=== PATIENT | female | born 1975 | race Caucasian/White ===

== ENCOUNTER → 2017-08-26 | Outpatient (CLI) | payer OTHER ==
--- NOTE | 2017-09-01 09:23 | MM ---
Reason for exam: screening (asymptomatic). Last mammogram was performed 5 years and 2 months ago. Physical Findings: A clinical breast exam by your physician is recommended on an annual basis and results should be correlated with mammographic findings. MG Screening Mammo w CAD Bilateral CC and MLO view(s) were taken. Prior study comparison: June 21, 2012, mammogram, performed at [facility]. The breast tissue is heterogeneously dense. This may lower the sensitivity of mammography. Focal asymmetry in the upper central right breast posterior third position. This finding is changed when compared with previous exams. ASSESSMENT: Incomplete: need additional imaging evaluation, BI-RAD 0 RECOMMENDATION: Special view mammogram of the right breast. If lesion persists on supplemental views, image directed ultrasound is recommended. [facility] will attempt to contact patient to return for supplemental views and ultrasound if indicated.
== END | disposition home or self-care (01) ==
LOC: RADMAMWWP 14:38
PROVIDERS: ATTEND Family Medicine
DX: Z12.31 Encounter for screening mammogram for malignant neoplasm of breast (principal)

== ENCOUNTER → 2017-09-06 | Outpatient (CLI) | payer OTHER ==
--- NOTE | 2017-09-07 08:45 | MM ---
Reason for exam: additional evaluation requested from abnormal screening. Last mammogram was performed less than 1 month ago. Physical Findings: Nurse did not find any significant physical abnormalities on exam. MG Work Up Mamm w CAD RT Spot compression CC, spot compression MLO, and LM view(s) were taken of the right breast. Prior study comparison: August 26, 2017, bilateral MG screening mammo w CAD. June 21, 2012, mammogram, performed at [facility]. The breast tissue is heterogeneously dense. This may lower the sensitivity of mammography. Focal asymmetry improves on additional views however precautionary ultrasound will be performed. Additional note is made of more posterior tissue inclusion on the 2017 exams as compared to 2011. ASSESSMENT: Incomplete: need additional imaging evaluation, BI-RAD 0 RECOMMENDATION: Ultrasound of the right breast. (upper outer and upper inner quadrant)
--- NOTE | 2017-09-07 08:46 | USB ---
Reason for exam: additional evaluation requested from abnormal screening. US Breast Workup Limited RT Right breast ultrasound demonstrates no cystic or solid lesion seen. No sonographic abnormality. No cystic or solid masses. Islands of dense breast tissue correspond to the mammographic finding. These results were verbally communicated with the patient and result sheet given to the patient on 09/06/17. ASSESSMENT: Benign, BI-RAD 2 RECOMMENDATION: Return to routine screening mammogram schedule for both breasts.
== END | disposition home or self-care (01) ==
LOC: RADMAMWWP 13:36
PROVIDERS: ATTEND Family Medicine
DX: R92.8 Other abnormal and inconclusive findings on diagnostic imaging of breast (principal)
CPT/HCPCS: 76642; G0206

== ENCOUNTER → 2018-04-11 | Outpatient (CLI) | payer OTHER ==
--- NOTE | 2018-04-11 16:52 | XR ---
EXAMINATION TYPE: XR cervical spine comp DATE OF EXAM: 04/11/2018 COMPARISON: NONE HISTORY: 43-year-old female bulging disc, neck pain, cervicalgia TECHNIQUE: 5 views FINDINGS: Moderate focal degenerative disc/endplate change at C5-C6 and mild at C6-C7. Reversal of the normal c ervical lordosis centered along this level. Alignment is maintained. There is mild uncovertebral joint arthropathy. On the left, this contribute to mild neuroforaminal na rrowing at C5-C6. On the right, this results in moderate neuroforaminal narrowing at C5-C6. Normal odontoid view. IMPRESSION: Moderate spondylotic change C5-C6 contributing to mild left and moderate right neuroforaminal stenosi s. Mild spondylotic change at C6-C7.
== END | disposition home or self-care (01) ==
LOC: RADXRMAIN 13:04
PROVIDERS: ATTEND Family Medicine
DX: M99.71 Connective tissue and disc stenosis of intervertebral foramina of cervical region (principal); M47.812 Spondylosis without myelopathy or radiculopathy, cervical region
CPT/HCPCS: 72050

== ENCOUNTER → 2018-04-24 | Outpatient (CLI) | payer OTHER ==
--- NOTE | 2018-04-25 00:29 | MR ---
EXAMINATION TYPE: MR iac wo/w con DATE OF EXAM: 04/24/2018 COMPARISON: NONE HISTORY: Left side hearing loss, tinnitus TECHNIQUE: Multiplanar, multisequence images of the brain and brainstem is performed without and with IV contras t, utilizing 7.5 mL intravenous Gadavist . FINDINGS: The ventricles and sulci appear normal. There is no mass effect nor midline shift. There is no sign of intracranial hemorrhage. Brainstem appears normal. Corpus callosum appears normal. Sella turcica appears normal. There is no hydrocephalus. The internal auditory canals appear normal. There is no evidence of cerebellopontine angle mass. There is normal signal pattern of the temporal bones. The contrast images show no pathologic enhancement. IMPRESSION: Normal MR scan of the brain and internal auditory canals.
== END | disposition home or self-care (01) ==
LOC: RADMRIMAIN 20:49
PROVIDERS: ATTEND Otolaryngology
DX: H90.42 Sensorineural hearing loss, unilateral, left ear, with unrestricted hearing on the contralateral side (principal); H93.13 Tinnitus, bilateral
CPT/HCPCS: 70553; A9581

== ENCOUNTER → 2018-05-15 | Outpatient (CLI) | payer OTHER ==
--- NOTE | 2018-05-15 09:38 | MR ---
MRI CERVICAL SPINE: CLINICAL HISTORY: Cervical radiculopathy per order. Neck pain for 5 years radiating to fingers causin g numbness worse in the right arm per patient. TECHNIQUE: Multiplanar, multisequence imaging of the cervical spine is performed without IV contrast. COMPARISON: Prior MRI cervical spine August 14, 2013. Cervical spine x-ray April 11, 2018. FINDINGS: Sagittal images of the cervical spine show the craniocervical junction to remain within nor mal limits. The cervical and upper thoracic spinal cord remains normal in caliber and signal. Loss o f normal cervical curvature with grade 1 retrolisthesis of C5 on C6 and C6 on C7 is redemonstrated. The vertebral body heights remain normal . There is moderate disc space narrowing C5-C6 level with mi ld to moderate anterior spurring at this level and C6-C7 level. Heterogeneous Modic type I degenerati ve change C5-C7 levels is identified more prominent versus prior. No new large posterior disc herniat ions are present on sagittal images. Axial images show the C2-C3 and C3-C4 levels to remain within normal limits. Axial images at C4-C5 level show broad-based right paracentral disc protrusion mildly effacing anteri or thecal sac, bilateral neural foramina are patent, no significant change from prior. Axial images at C5-C6 level show spondylolisthesis and more prominent broad-based posterior disc prot rusion effacing anterior thecal sac and causing moderate to advanced right and moderate left-sided ne ural foraminal narrowing, findings are more prominent than prior exam on axial image 22. Axial images at C6-C7 level show spondylolisthesis and broad-based posterior disc protrusion effacing anterior thecal sac and causing moderate left greater than right bilateral neural foraminal narrowin g at this level, findings are more prominent than prior study. Axial images at C7-T1 level are felt to remain within normal limits. IMPRESSION: Loss of normal cervical curvature with multilevel degenerative changes redemonstrated mos t prominent at C5-C6 and C6-C7 levels, interval progression is noted at these levels on current study versus 2013 MRI.
== END | disposition home or self-care (01) ==
LOC: RADMRIMAIN 08:56
PROVIDERS: ATTEND Family Medicine
DX: M47.22 Other spondylosis with radiculopathy, cervical region (principal)
CPT/HCPCS: 72141

== ENCOUNTER → 2018-08-16 | Outpatient (CLI) | payer OTHER ==
[2018-08-16 18:09] LABS: HGB 12.4 gm/dL (11.4-16.0); MCH 32.6 pg (25.0-35.0); MCHC 32.6 g/dL (31.0-37.0); MCV 99.9 fL (80.0-100.0); Mean Platelet Volume 6.4; Platelet Count 243 k/uL (150-450); RDW 12.7 % (11.5-15.5); WBC 6.3 k/uL (3.8-10.6)
[2018-08-16 18:14] LABS: Appearance,Urine Clear (Clear); Bilirubin,Urine Negative (Negative); Blood,Urine Negative (Negative); Color,Urine Yellow; Glucose,Urine (UA) Negative (Negative); Ketones,Urine Negative (Negative); Leukocyte Esterase,Urine Negative (Negative); Nitrite,Urine Negative (Negative); PH, Urine 6.5 (5.0-8.0); Protein,Urine Trace (Negative); Specific Gravity,Urine 1.026 (1.001-1.035); Urobilinogen,Urine <2.0 mg/dL (<2.0)
[2018-08-16 18:17] LABS: Partial Thromboplastin Time 26.7 sec (22.0-30.0); Prothrombin Time 10.1 sec (9.0-12.0)
[2018-08-16 18:25] LABS: Anion Gap 7 mmol/L; Blood Urea Nitrogen 3 mg/dL (7-17); Calcium 9.2 mg/dL (8.4-10.2); Carbon Dioxide 30 mmol/L (22-30); Chloride 103 mmol/L (98-107); Potassium 4.1 mmol/L (3.5-5.1); Sodium 140 mmol/L (137-145)
[2018-08-16 18:57] LABS: Glucose 46 mg/dL (74-99)
--- NOTE | 2018-08-16 21:04 | XR ---
EXAMINATION TYPE: XR chest 2V DATE OF EXAM: 08/16/2018 COMPARISON: December 30, 2015 HISTORY: Preop TECHNIQUE: Frontal and lateral views of the chest are obtained. FINDINGS: Heart and mediastinum are normal. Lungs are clear. Diaphragm is normal. Bony thorax is int act. IMPRESSION: Normal chest. No change.
[2018-08-19 14:04] LABS: Anabasine Urine <2.0 ng/mL (<2.0)
== END ==
LOC: LABPAT 17:02
PROVIDERS: ATTEND Orthopaedic Surgery Orthopaedic Surgery of the Spine
DX: Z01.818 Encounter for other preprocedural examination (principal); M50.122 Cervical disc disorder at C5-C6 level with radiculopathy
CPT/HCPCS: 86900; 86901; 80048; 85027; 85610; 85730; 86850; 81003; 87070; 71046; 93005; 36415; G0480; 80323

== ENCOUNTER 2018-08-23 08:16 | Day surgery (SDC) | payer OTHER ==
[2018-08-16 15:17] VITALS: BMI 25.4
[~2018-08-23 08:16] MED LIST: BACITRACIN 50,000 UNIT, POLYMYXIN B 500,000 UNIT in SODIUM CHLORIDE 0.9% IRRIGATIO 1,00... IRRIGATION ONE; DEXAMETHASONE SOD PHOSPHATE 10 MG/ML 1 ML VIAL IV ONE; HYDROmorphone 0.5 MG/0.5 ML SYRINGE IVP PRN; MORPHINE SULFATE 2 MG/ML SYRINGE IV PRN; ONDANSETRON 4 MG/2 ML VIAL IVP ONE; ONDANSETRON 4 MG/2 ML VIAL IVP PRN; ceFAZolin IN SWFI 2 GM/20 ML SYRINGE IVP ONE
[2018-08-23 09:03] LABS: Glucose,Whole Blood 93 mg/dL (75-99)
[2018-08-23] MEDS ORDERED: LIDOCAINE 1% 20 ML VIAL (10MG/ML) FOR IV START INTRADERMA ONE (09:08)
[2018-08-23] MEDS: LACTATED RINGERS 1,000 ML IV SCH ×2 (09:08→20:03)
[2018-08-23] MEDS ORDERED: LIDOCAINE 1% INJ 10MG/ML (20 ML MDV) ONE (10:09)
[2018-08-23] MEDS ORDERED: PROPOFOL 10 MG/ML 20 ML VIAL IV ONE (10:09)
[2018-08-23] MEDS ORDERED: NEOSTIGMINE 1 MG/ML 10 ML VIAL ONE (10:09)
[2018-08-23] MEDS ORDERED: THROMBIN (BOVINE) 5,000 UNIT VIAL TOPICAL ONE (10:09)
[2018-08-23] MEDS ORDERED: MIDAZOLAM 2 MG/2 ML VIAL ONE (10:09)
[2018-08-23] MEDS ORDERED: LIDOCAINE 0.5%-EPI 1:200,000 50 ML VIAL SQ ONE (10:09)
[2018-08-23] MEDS ORDERED: PHENYLEPHRINE-0.9% NACL SYG 1 MG/10 ML SYRINGE ONE (10:09)
[2018-08-23] MEDS ORDERED: ROCURONIUM BROMIDE 10 MG/ML 10 ML VIAL IV ONE (10:09)
[2018-08-23] MEDS ORDERED: fentaNYL (PF) 50 MCG/ML 2 ML AMP ONE (10:09)
[2018-08-23] MEDS ORDERED: GLYCOPYRROLATE 0.2 MG/ML 2 ML VIAL ONE (10:09)
[2018-08-23] MEDS ORDERED: GELATIN SPONGE,ABSORB (LARGE) 1 EACH SPONGE TOPICAL ONE (10:09)
[2018-08-23] MEDS ORDERED: ePHEDrine SULFATE/0.9% NACL/PF 50 MG/5 ML SYRINGE IV ONE (10:09)
[2018-08-23] MEDS ORDERED: HYDROmorphone (PF) 1 MG/ML ONE (10:09)
[2018-08-23] MEDS ORDERED: LACTATED RINGERS 1,000 ML IV ONE (11:47)
[2018-08-23] MEDS ORDERED: HYDROmorphone 1 MG/ML 1 ML SYRINGE IVP PRN ×2 (11:53)
[2018-08-23] MEDS ORDERED: BENZOCAINE/MENTHOL LOZENG 1 EACH LOZENGE MUCOUS MEM PRN (11:53)
[2018-08-23] MEDS ORDERED: ONDANSETRON 4 MG/2 ML VIAL IVP PRN (11:53)
--- NOTE | 2018-08-23 12:00 | P.OP ---
Date of Procedure: 08/23/18 Preoperative Diagnosis: Herniated nucleus pulposis C5 6 C6 7 Cervical stenosis C5 6 C6 7 Degenerative disc disease Upper extremity radiculopathy Weakness at the right upper extremity Postoperative Diagnosis: Same Anesthesia: GETA Pathology: none sent Condition: stable Disposition: PACU Description of Procedure: BRIEF OPERATIVE NOTE Preoperative Diagnosis:Herniated nucleus pulposis C5 6 C6 7 Cervical stenosis C5 6 C6 7 Degenerative disc disease Upper extremity radiculopathy Weakness at the right upper extremity Postoperative Diagnosis: Same Procedure: Anterior cervical decompression with discectomy and fusion C5 6 C6 7 Placement of interbody graft C5 6 C6 7 Application of anterior cervical plate C5 6 7 Surgeon: Dr. Jean Regional Recruiter: Terry Lewis is present throughout the entire the case persistence during positioning, dissection, exposure, visualization, and all crucial elements of the case as well as closure. Anesthesia: General anesthesia Estimated blood loss: Approximately 50 mL Complications: None apparent Components implanted: K2M anterior cervical plate system with screws and Vikos interbody allograft bone graft with 1 mL DBX bone putty Disposition: To recovery room in good stable condition. OPERATIVE INDICATIONS The patient has had long-standing issues in their neck and upper extremities. She is found have significant disc degeneration with large osteophytes and disc protrusion with disc herniation at C5 6 and C6 7. These findings correlated with her neck pain and her upper extremity symptoms. She is having worsening symptoms in her upper extremities with radiculopathy and some some weakness at her upper extremity particularly on the right side. This was worsening despite conservative treatment. The patient has been through conservative treatment. We discussed various treatment options including surgery, and the patient wishes to proceed with surgery We discussed the risk, patient's alternatives and benefits of surgery including but not limited to, risk of bleeding risk of infection, risk of need for further surgery, risk of decreased, loss of motion, muscle function, malunion nonunion, hardware failure, nerve damage, paralysis, heart attack, and . OPERATIVE SUMMARY After discussing all the risks, patient alternatives and benefits at length, the patient elected to proceed with surgical intervention, signed informed consent, and presented for their procedure. The patient was seen and examined in the preoperative holding area and the surgical site was marked. The patient was given antibiotics and brought to the operating room. The patient was positioned on the operating room table in a supine position being careful to pad any bony prominences and pressure points. The patient was sedated and intubated by anesthesia in standard fashion. Once the airway and C- spine were stabilized the patient's arms were padded and tucked at her side, with her shoulders gently taped. The head was placed in a donut pad with the neck in good neutral alignment and position. We were careful to maintain the patient's cervical spine and good neutral alignment and position throughout. The patient was prepped and draped in a normal standard fashion. An appropriate timeout and keystone protocol performed. We were able to proceed with the surgery. The local wound area was infiltrated with local anesthetic. An incision was made transversely approximately 2-1/2 cm over the appropriate levels at C6. Dissection was taken down subcutaneously to the level of the platysma which was split in line with its fibers. Dissection was taken with a carotid approach, with the trachea and esophagus medial and the carotid sheath laterally. We dissected down to the anterior surface of the vertebral bodies. Intraoperative x-ray was taken which showed a marker at the appropriate level at C5 6. With the appropriate level positively confirmed, we were able to proceed with discectomy at the appropriate levels. All of the operative levels were exposed appropriately. The patient had all their twitches back, and there was no evidence of recurrent laryngeal issue. The wound was copiously irrigated and suctioned dry as had been done periodically throughout the case. At the appropriate level/levels, starting at C5 6 and then working to C6 7 I established an annulotomy with an 11 blade scalpel. A discectomy was performed with a combination of pituitary rongeurs, curettes, a high-speed bur, and Kerrison rongeurs. There was severe disc degeneration and almost complete disc loss at both C5 6 and C6 7. The posterior longitudinal ligament was taken down as were any posterior osteophytes. This gave good central and bilateral foraminal decompression. I was able to remove any herniated disc for further decompression. There is no evidence of any dural tear or leak. The endplates were prepared with a high-speed bur. With the endplates in good parallel position, I was able to size for the appropriate size interbody graft. The wound was irrigated and suctioned dry the graft was prepared and malleted into position. It had good alignment and position with the anterior surface flush with the anterior surface of the vertebral bodies. This was done similarly the appropriate levels first at C5 6 and then at C6. With the grafts intact, I was able to measure and contour and appropriate sized plate. The plate was positioned at the midline over the appropriate levels at C5 6 and 7. Screw holes were established with a hand drill and drill guide. Screws were placed in good alignment and position with excellent bony purchase. They were seated under the locking device. The construct was checked and found to be stable. Intraoperative x-ray was taken which showed good alignment and position of the implants at the appropriate levels at C5 6 and 7. There was no evidence of any dural tear or leak. Good hemostasis was maintained. The wound was copiously irrigated and suctioned dry as had been done periodically throughout the case. The platysma was closed with absorbable suture. The subcutaneous tissue was closed. The subcuticular tissue was closed with absorbable suture. The wound was cleaned and dried and dressed appropriately. A soft cervical collar was placed appropriately. The patient was woken up by anesthesia, extubated, transferred back gently to their hospital bed and brought to the recovery room in good stable condition. The patient will be admitted to the hospital for appropriate postoperative care , medical management and monitoring. We will continue to follow them closely about the postoperative course.
--- NOTE | 2018-08-23 12:29 | FL ---
Fluoroscopy INDICATION: Pain FINDINGS: Fluoroscopy time: 1 seconds. Images obtained: 0. IMPRESSIONS: 1. Documentation of fluoroscopy.
--- NOTE | 2018-08-23 12:33 | XR ---
Fluoroscopy INDICATION: Pain FINDINGS: Fluoroscopy time: 1 seconds. Images obtained: 1. IMPRESSIONS: 1. Documentation of fluoroscopy.
--- NOTE | 2018-08-23 14:39 | XR ---
Fluoroscopy INDICATION: Pain, cervical fusion FINDINGS: Fluoroscopy time: 5 seconds. Images obtained: 2. IMPRESSIONS: 1. Documentation of fluoroscopy.
[2018-08-23] MEDS: HYDROcodone/APAP 10-325MG 1 EACH TAB PO PRN (15:46)
[2018-08-23] MEDS: SODIUM CHLORIDE 0.9% 1,000 ML IV SCH (18:34)
[2018-08-23] MEDS: ceFAZolin IN SWFI 2 GM/20 ML SYRINGE IVP SCH (18:34)
[2018-08-23] MEDS: VARENICLINE 1 MG TAB PO SCH (20:02)
[2018-08-23] MEDS: MORPHINE SULFATE ER 30 MG TABLET PO SCH (20:02)
[2018-08-23] MEDS: FAMOTIDINE 20 MG TAB PO SCH (20:02)
[2018-08-23] MEDS: Dextroamphetamine/Amphetamine [Adderall] 30 MG PO SCH (20:03)
[2018-08-24] MEDS: HYDROcodone/APAP 10-325MG 1 EACH TAB PO PRN ×2 (00:03→09:05)
[2018-08-24] MEDS: ceFAZolin IN SWFI 2 GM/20 ML SYRINGE IVP SCH (01:48)
[2018-08-24] MEDS: SODIUM CHLORIDE 0.9% 1,000 ML IV SCH (02:08)
[2018-08-24] MEDS: Dextroamphetamine/Amphetamine [Adderall] 30 MG PO SCH (07:04)
[2018-08-24 07:51] VITALS: BP 128/84; PULSE 110; RESP 12; TEMP 98.8
--- NOTE | 2018-08-24 08:45 | P.DS ---
Providers Date of admission: 08/23/18 Attending physician: Tara Jean Primary care physician: [facility] Course: The patient presented on the day of admission as per her operative note. She underwent anterior cervical discectomy and decompression with fusion C5 6 C6 7 for her cervical stenosis with herniated disc at C5 6 and C6 7 with upper extremity radiculopathy. She feels that she is doing better with her symptoms and her arms have improved some degree. She is having pain and spasm in her neck as expected but it is controlled adequately with oral medications. She has been able to create her room. Physical Exam The incision site is clean dry and intact. There is no erythema no drainage. There is no purulence no evidence of infection. Her neck is soft and supple. There is no fluid collection. Abdomen soft and nontender. Chest has good excursion with deep inspiration and expiration. The patient has active and passive range of motion intact at the upper and lower extremities. There is no acute change in neurologic status. She has good motion in her upper extremities bilaterally Hospital Course Postoperative day #1 status post anterior cervical decompression with discectomy and fusion at C5 6 C6 7 for her herniated nucleus pulposus and cervical stenosis with upper extremity radiculopathy. Patient is doing well thus far. The patient has been making good progress postoperatively. They have completed the prophylactic antibiotics without any signs or symptoms of infection. The patient has been able to advance their diet, and is tolerating diet adequately. The pain was initially controlled with IV medications and is now controlled appropriately with oral medications. The patient has been able to increase their mobilization. The patient has progressed appropriately. I think they are in good stable condition for discharge today. The patient does pain management and has pain medications at home already which he intends to continue with. I answered their questions to the best of my ability in a language that they can understand and they are agreeable with the plan. They will follow up as directed in approximately 2 weeks or sooner she's having problems. Plan - Discharge Summary Discharge Rx Participant: Yes New Discharge Prescriptions: No Action Morphine Sulfate [Ms Contin] 30 mg PO Q12H HYDROcodone/APAP 10-325MG [Lawai 10-325] 1 tab PO BID PRN PRN Reason: Pain Citalopram Hydrobromide [CeleXA] 40 mg PO DAILY Varenicline [Chantix Continuing Pack] 1 mg PO BID Dextroamphetamine/Amphetamine [Adderall] 30 mg PO BID Ranitidine HCl [Zantac] 150 mg PO BID Discharge Medication List Citalopram Hydrobromide [CeleXA] 40 mg PO DAILY 11/05/16 [History] HYDROcodone/APAP 10-325MG [Lawai 10-325] 1 tab PO BID PRN 11/05/16 [History] Morphine Sulfate [Ms Contin] 30 mg PO Q12H 11/05/16 [History] Dextroamphetamine/Amphetamine [Adderall] 30 mg PO BID 08/16/18 [History] Ranitidine HCl [Zantac] 150 mg PO BID 08/16/18 [History] Varenicline [Chantix Continuing Pack] 1 mg PO BID 08/16/18 [History] Follow up Appointment(s)/Referral(s): Tara Jean DO [Doctor of Osteopathic Medicine] - 2 Weeks Activity/Diet/Wound Care/Special Instructions: May ambulate to tolerance Avoid heavy or overhead activity. Avoid rigorous activity. No repetitive bending twisting or lifting. Site clean. May shower with waterproof Tegaderm intact. On Tuesday, the patient may shower with area uncovered. At least Steri-Strips intact and allow them to fray off on their own. Do not soak in a tub. Discharge Disposition: HOME SELF-CARE
[2018-08-24] MEDS ORDERED: CITALOPRAM HYDROBROMIDE 20 MG TAB PO SCH (09:00)
[2018-08-24] MEDS ORDERED: SENNOSIDES-DOCUSATE SODIUM 1 EACH TAB PO SCH (09:00)
[2018-08-24] MEDS: VARENICLINE 1 MG TAB PO SCH (09:27)
[2018-08-24] MEDS: MORPHINE SULFATE ER 30 MG TABLET PO SCH (09:27)
[2018-08-24] MEDS: FAMOTIDINE 20 MG TAB PO SCH (09:27)
== END 2018-08-24 10:30 | disposition home or self-care (01) ==
LOC: OR 08:16 → 3SUR 12:05 → OR 08-24 10:30
PROVIDERS: ATTEND Orthopaedic Surgery Orthopaedic Surgery of the Spine
DX: M50.122 Cervical disc disorder at C5-C6 level with radiculopathy (principal); M50.10 Cervical disc disorder with radiculopathy, unspecified cervical region; M25.78 Osteophyte, vertebrae; K21.9 Gastro-esophageal reflux disease without esophagitis; F32.9 Major depressive disorder, single episode, unspecified; L40.9 Psoriasis, unspecified; Z79.891 Long term (current) use of opiate analgesic; Z79.899 Other long term (current) drug therapy; Z88.5 Allergy status to narcotic agent; Z88.0 Allergy status to penicillin; Z88.8 Allergy status to other drugs, medicaments and biological substances
CPT/HCPCS: 81025; 86900; 86901; 86850; 72020; 22551; 22552; 20931; C1713 ×2; C1762 ×2; J2405; J0690 ×2

== ENCOUNTER 2019-01-24 10:12 | Inpatient (IN) | payer OTHER ==
[2019-01-24] MEDS ORDERED: CLINDAMYCIN 600 MG in DEXTROSE 5% IN WATER 50 ML IVPB STA ×2 (10:45)
[2019-01-24] MEDS ORDERED: SODIUM CHLORIDE 0.9% 1,000 ML IV ONE (10:46)
[2019-01-24] MEDS ORDERED: LEVOFLOXACIN 500MG-D5W PMX 500 MG in DEXTROSE/WATER 1 100ML.BAG IVPB STA (10:46)
[2019-01-24] MEDS ORDERED: HYDROcodone/APAP 5-325MG 1 EACH TAB PO STA (10:48)
--- NOTE | 2019-01-24 10:50 | ED ---
Skin/Abscess/FB HPI - General Chief complaint: Skin/Abscess/Foreign Body Stated complaint: Dog bite on arm Time Seen by Provider: 01/24/19 10:29 Source: patient, RN notes reviewed, old records reviewed Mode of arrival: ambulatory Limitations: no limitations - History of Present Illness Initial comments: Patient is a 43-year-old female who presents emergency department today after seeing PCP. Patient presented to her PCP 3 days after a dog bite for follow- up. She was bit by her own dog. She states that she did not receive rabies prophylaxis and her tetanus was up-to-date. Patient was seen at [facility] and had a flap laceration repair over the left forearm. Patient has increased pain and swelling and erythema extending down the forearm. Patient has been taking her antibiotics as prescribed over the past 3 days. She was sent in for IV antibiotics due to failure of outpatient treatment.Patient is currently on Cipro and Clindaycin. Patient reports that she has multiple stitches within the forearm and that the laceration was closed tightly. She reports that she's had some drainage from the site. - Related Data Home Medications Medication Instructions Recorded Confirmed Citalopram Hydrobromide [CeleXA] 40 mg PO DAILY 11/05/16 01/24/19 HYDROcodone/APAP 10-325MG [[place] 1 tab PO BID PRN 11/05/16 01/24/19 10-325] Morphine Sulfate [Ms Contin] 30 mg PO Q12H 11/05/16 01/24/19 Dextroamphetamine/Amphetamine 30 mg PO BID 08/16/18 01/24/19 [Adderall] Ranitidine HCl [Zantac] 150 mg PO BID 08/16/18 01/24/19 Ciprofloxacin HCl [Cipro] 500 mg PO Q12HR 01/24/19 01/24/19 Clindamycin HCl 300 mg PO TID 01/24/19 01/24/19 Pantoprazole Sodium [Protonix] 40 mg PO DAILY 01/24/19 01/24/19 Allergies Allergy/AdvReac Type Severity Reaction Status Date / Time duloxetine [From Cymbalta] Allergy Rash/Hives Verified 01/24/19 10:34 Penicillins Allergy Rash/Hives Verified 01/24/19 10:34 tramadol [From Ultram] Allergy Rapid Verified 01/24/19 10:34 Heart Rate Review of Systems ROS Statement: Those systems with pertinent positive or pertinent negative responses have been documented in the HPI. ROS Other: All systems not noted in ROS Statement are negative. Past Medical History Past Medical History: Rheumatoid Arthritis (RA) Additional Past Medical History / Comment(s): chronic back and neck pain, psoriatic arthritis History of Any Multi-Drug Resistant Organisms: None Reported Past Surgical History: Tubal Ligation Additional Past Surgical History / Comment(s): Neck sx in aug 2018 Past Psychological History: Depression Smoking Status: Current every day smoker Past Alcohol Use History: None Reported Past Drug Use History: None Reported - Past Family History Mother Additional Family Medical History / Comment(s): Lung CA Sister(s) Additional Family Medical History / Comment(s): lung CA passed in 2014 General Exam - General Exam Comments Initial Comments: This is a 43-year-old female. Alert and oriented 3. Patient appears in no significant distress. Limitations: no limitations General appearance: alert, in no apparent distress Head exam: Present: atraumatic, normocephalic, normal inspection Eye exam: Present: normal appearance, PERRL, EOMI. Absent: scleral icterus, conjunctival injection, periorbital swelling ENT exam: Present: normal exam, mucous membranes moist Neck exam: Present: normal inspection. Absent: tenderness, meningismus, lymphadenopathy Respiratory exam: Present: normal lung sounds bilaterally. Absent: respiratory distress, wheezes, rales, rhonchi, stridor Cardiovascular Exam: Present: regular rate, normal rhythm, normal heart sounds. Absent: systolic murmur, diastolic murmur, rubs, gallop, clicks GI/Abdominal exam: Present: soft, normal bowel sounds. Absent: distended, tenderness, guarding, rebound, rigid Extremities exam: Present: other (Patient has multiple closed puncture wounds over the right forearm. There is some surrounding swelling and erythema around each. Patient has a 7 cm flap laceration over the left anterior forearm. There is surrounding cellulitis and erythema. Laceration was closed tightly with multiple sutures. There is drainage noted from between suture sites.) Back exam: Present: normal inspection Neurological exam: Present: alert, oriented X3, CN II-XII intact Psychiatric exam: Present: normal affect, normal mood Course Vital Signs 01/24/19 10:14 Temperature 98.7 F Pulse Rate 110 H Respiratory 18 Rate Blood Pressure 135/84 O2 Sat by Pulse 99 Oximetry Medical Decision Making - Medical Decision Making Patient is a 43-year-old female presents return today for failure of outpatient treatment for left arm cellulitis related to a dog bite. She has a flap laceration that was closed with approximately 14 sutures. The wound is weeping with pus. Aerobic wound culture was obtained after I removed some of the sutures. 4 sutures remain intact to hold the laceration together at this time. Patient has multiple puncture wound of her right forearm that have some minor erythema around them. Patient was started on IV fluids and laboratory obtained. Blood cultures obtained. Patient will was started on IV clindamycin and Levaquin. She is ALLERGIC to penicillins. Patient will be admitted this time due to failure of outpatient treatment and left arm cellulitis. X-ray does show significant soft tissue swelling but no evidence of radiopaque foreign body or bony destruction. Patient will be admitted with consult to infectious disease. - Lab Data Result diagrams: 01/24/19 11:13 01/24/19 11:13 Lab Results 01/24/19 01/24/19 01/24/19 Range/Units 11:13 11:13 12:04 WBC 8.7 (3.8-10.6) k/uL RBC 3.87 (3.80-5.40) m/uL Hgb 12.2 (11.4-16.0) gm/dL Hct 36.9 (34.0-46.0) % MCV 95.3 (80.0-100.0) fL MCH 31.5 (25.0-35.0) pg MCHC 33.0 (31.0-37.0) g/dL RDW 12.7 (11.5-15.5) % Plt Count 193 (150-450) k/uL Neutrophils % 62 % Lymphocytes % 25 % Monocytes % 6 % Eosinophils % 3 % Basophils % 0 % Neutrophils # 5.4 (1.3-7.7) k/uL Lymphocytes # 2.2 (1.0-4.8) k/uL Monocytes # 0.5 (0-1.0) k/uL Eosinophils # 0.2 (0-0.7) k/uL Basophils # 0.0 (0-0.2) k/uL Sodium 139 (137-145) mmol/L Potassium 4.9 (3.5-5.1) mmol/L Chloride 105 (98-107) mmol/L Carbon Dioxide 28 (22-30) mmol/L Anion Gap 6 mmol/L BUN 7 (7-17) mg/dL Creatinine 0.57 (0.52-1.04) mg/dL Est GFR (CKD-EPI)AfAm >90 (>60 ml/min/1.73 sqM) Est GFR (CKD-EPI)NonAf >90 (>60 ml/min/1.73 sqM) Glucose 102 H (74-99) mg/dL Plasma Lactic Acid Siddhartha 0.7 (0.7-2.0) mmol/L Calcium 9.4 (8.4-10.2) mg/dL Total Bilirubin 0.6 (0.2-1.3) mg/dL AST 16 (14-36) U/L ALT 22 (9-52) U/L Alkaline Phosphatase 52 (38-126) U/L Total Protein 6.3 (6.3-8.2) g/dL Albumin 3.7 (3.5-5.0) g/dL - Radiology Data Radiology results: report reviewed No acute fracture dislocation seen left radius or ulna. Left elbow and wrist joints appear normal. Mild to moderate subcutaneous edema along the radial volar aspect of the proximal forearm is noted without suspicious radiodense foreign body. Disposition Clinical Impression: Cellulitis of left forearm, Failure of outpatient treatment, Dog bite Disposition: ADMITTED IP TO THIS HOSP Condition: Stable Additional Instructions: Patient has a close follow-up with primary care provider. Is patient prescribed a controlled substance at d/c from ED?: No Referrals: Tha Paris DO [Primary Care Provider] - 1-2 days Time of Disposition: 12:43
[2019-01-24 11:33] LABS: Basophils % (A) 0 %; Eosinophils # (A) 0.2 k/uL (0-0.7); Eosinophils % (A) 3 %; HCT 36.9 % (34.0-46.0); HGB 12.2 gm/dL (11.4-16.0); Lymphocytes # (A) 2.2 k/uL (1.0-4.8); Lymphocytes % (A) 25 %; MCH 31.5 pg (25.0-35.0); MCV 95.3 fL (80.0-100.0); Mean Platelet Volume 6.9; Monocytes # (A) 0.5 k/uL (0-1.0); Monocytes % (A) 6 %; Neutrophils # (A) 5.4 k/uL (1.3-7.7); Neutrophils % (A) 62 %; Platelet Count 193 k/uL (150-450); RBC 3.87 m/uL (3.80-5.40); RDW 12.7 % (11.5-15.5); WBC 8.7 k/uL (3.8-10.6)
--- NOTE | 2019-01-24 11:50 | XR ---
EXAMINATION TYPE: XR forearm LT DATE OF EXAM: 01/24/2019 CLINICAL HISTORY: Increased pain with redness and swelling after dogbite injury several days ago. TECHNIQUE: Two views of the left forearm are obtained. COMPARISON: None. FINDINGS: There is no acute fracture or dislocation seen in the left radius or ulna. The left elbow and wrist joints appear within normal limits. Mild to moderate subcutaneous edema along radial volar aspect proximal forearm is noted without suspicious radiodense foreign body. IMPRESSION: As above.
[2019-01-24 11:53] LABS: ALT 22 U/L (9-52); AST 16 U/L (14-36); Albumin 3.7 g/dL (3.5-5.0); Alkaline Phosphatase 52 U/L (38-126); Anion Gap 6 mmol/L; Blood Urea Nitrogen 7 mg/dL (7-17); Calcium 9.4 mg/dL (8.4-10.2); Carbon Dioxide 28 mmol/L (22-30); Chloride 105 mmol/L (98-107); Glucose 102 mg/dL (74-99); Potassium 4.9 mmol/L (3.5-5.1); Sodium 139 mmol/L (137-145); Total Bilirubin 0.6 mg/dL (0.2-1.3); Total Protein 6.3 g/dL (6.3-8.2)
[2019-01-24] MEDS ORDERED: ACETAMINOPHEN TAB 325 MG TAB PO PRN (12:44)
[2019-01-24] MEDS ORDERED: IBUPROFEN 400 MG TAB PO PRN (12:44)
[2019-01-24] MEDS ORDERED: HYDROcodone/APAP 5-325MG 1 EACH TAB PO PRN (12:44)
[2019-01-24] MEDS ORDERED: NALOXONE 0.4 MG/ML 1 ML VIAL IV PRN (12:44)
[2019-01-24] MEDS ORDERED: ONDANSETRON 4 MG/2 ML VIAL IVP PRN (12:44)
[2019-01-24] MEDS ORDERED: MORPHINE SULFATE 4 MG/ML SYRINGE IV PRN (12:44)
[2019-01-24] MEDS: SODIUM CHLORIDE 0.9% 1,000 ML IV SCH (13:38)
--- NOTE | 2019-01-24 14:13 | P.HPIM ---
History of Present Illness H&P Date: 01/24/19 Chief Complaint: Dog bite This is a 43--year-old female patient of Dr. Paris with a past medical history of rheumatoid arthritis, psoriatic arthritis, chronic back and neck pain, tobacco use and dependence. Patient gives history that her dog bit her on Tuesday. She states she was leaning on her son's bed to plug in a phone and the dog attacked her biting both arms. She went [facility] and a flap laceration repair was done to the left forearm. Patient was placed on ciprofloxacin and clindamycin which she has been taking. She states she was doing okay on Tuesday and was just sore but then on Tuesday it started oozing. She was seen by her primary care doctor and was sent in to the [facility] emergency center for evaluation. Left forearm x-ray showed no acute fracture or dislocation in the left radius or ulna. Left elbow and wrist joints. Normal. Mild to moderate continuous edema along the radial volar aspect proximal forearm without suspicious for radiodense foreign body. Patient has been started on clindamycin IV and Levaquin. She has an ALLERGY to penicillin which is a rash. She has been afebrile, heart rate running in the low 100s. CBC is normal, lactic acid 0.7, albumin 3.7. Patient to be admitted to the [facility] floor and consult with Dr. Perez has been requested. Regarding the dog, it is a pit bull terrier mix and is her own dog. She is planning to have the dog put down. The animals immunizations are one month overdue. Regarding rheumatoid arthritis, patient has not been on any medications for this. She has been referred to a specialist but Dr. Paris but did not follow-up. Regarding the psoriasis answer reticulocyte arthritis, she has used creams topically but has not ever been on DMARDs. Tetanus status is up-to-date. Review of Systems All systems: negative Constitutional: Denies anorexia, Denies chills, Denies fatigue, Denies fever, Denies poor appetite, Denies weakness, Denies weight loss Eyes: denies blurred vision, denies pain Ears, nose, mouth and throat: Denies dental pain, Denies headache, Denies mouth pain, Denies sore throat, Denies vertigo Cardiovascular: Denies chest pain, Denies dyspnea on exertion, Denies edema, Denies leg edema, Denies lightheadedness, Denies shortness of breath, Denies syncope Respiratory: Denies cough, Denies cough with sputum, Denies dyspnea, Denies excessive sputum, Denies hemoptysis, Denies home oxygen, Denies wheezing Gastrointestinal: Denies abdominal pain, Denies diarrhea, Denies loss of appetite, Denies nausea, Denies vomiting Genitourinary: Denies dysuria, Denies hematuria, Denies urgency, Denies urinary frequency Musculoskeletal: Denies frequent falls, Denies gait dysfunction, Denies myalgias Integumentary: Reports color changes, Reports darkening of skin, Reports lesions, Reports wounds, Denies pruritus, Denies rash Neurological: Denies aphasia, Denies change in mentation, Denies change in speech, Denies gait dysfunction, Denies numbness, Denies seizures, Denies vertigo, Denies weakness Psychiatric: Denies anxiety, Denies anxiety attacks, Denies depression Endocrine: Denies fatigue, Denies weight change Past Medical History Past Medical History: Fibromyalgia, GERD/Reflux, Hearing Disorder / Deafness, Pneumonia, Rheumatoid Arthritis (RA) Additional Past Medical History / Comment(s): Chronic low back and cervical pain, psoriatic arthritis, bronchitis, peptic ulcer, IBS, deaf in L ear and T[place]CARORA in the right ear. History of Any Multi-Drug Resistant Organisms: None Reported Past Surgical History: Orthopedic Surgery, Tubal Ligation, Uterine Ablation Additional Past Surgical History / Comment(s): 01/21/19 flap laceration repair LFA, anterior cervical decompression/fusion C5-C6 and C6-C7, cervical and low back epidural injections, D&C/hysteroscopy and uterine ablation Past Anesthesia/Blood Transfusion Reactions: No Reported Reaction Additional Past Anesthesia/Blood Transfusion Reaction / Comment(s): Pt received blood when she was first born. Smoking Status: Current every day smoker Additional Past Alcohol Use History / Comment(s): Patient is a smoker of half pack per day since she was 13 years of age. She denies any marijuana, street drug or alcohol use. She lives at home with her significant other and children. - Past Family History Mother Additional Family Medical History / Comment(s): Mother at age 67 of lung CA. She was a smoker Sister(s) Family Medical History: Cancer Additional Family Medical History / Comment(s): Sister at age 55 from lung cancer. She was a smoker. Patient has 2 other sisters alive with no major medical problems. Brother(s) Additional Family Medical History / Comment(s): Patient has 1 brother that at age 45 from alcoholic cirrhosis with history of alcohol abuse and drug abuse as well as hepatitis. Father Additional Family Medical History / Comment(s): Patient has no contact with her father. Patient has 5 children with no major medical problems. Medications and Allergies Home Medications Medication Instructions Recorded Confirmed Type Citalopram Hydrobromide [CeleXA] 40 mg PO DAILY 11/05/16 01/24/19 History HYDROcodone/APAP 10-325MG [[place] 1 tab PO BID PRN 11/05/16 01/24/19 History 10-325] Morphine Sulfate [Ms Contin] 30 mg PO Q12H 11/05/16 01/24/19 History Dextroamphetamine/Amphetamine 30 mg PO BID 08/16/18 01/24/19 History [Adderall] Ranitidine HCl [Zantac] 150 mg PO BID 08/16/18 01/24/19 History Ciprofloxacin HCl [Cipro] 500 mg PO Q12HR 01/24/19 01/24/19 History Clindamycin HCl 300 mg PO TID 01/24/19 01/24/19 History Pantoprazole Sodium [Protonix] 40 mg PO DAILY 01/24/19 01/24/19 History Allergies Allergy/AdvReac Type Severity Reaction Status Date / Time duloxetine [From Cymbalta] Allergy Rash/Hives Verified 01/24/19 10:34 Penicillins Allergy Rash/Hives Verified 01/24/19 10:34 tramadol [From Ultram] Allergy Rapid Verified 01/24/19 10:34 Heart Rate Physical Exam Vitals: Vital Signs Temp Pulse Resp BP Pulse Ox 01/24/19 14:06 108 H 18 116/69 97 01/24/19 13:13 112 H 18 116/69 98 01/24/19 10:14 98.7 F 110 H 18 135/84 99 Intake and Output 01/23/19 01/24/19 01/24/19 22:59 06:59 14:59 Other: Weight 63.503 kg Gen: This is a 43-year-old female. She is resting in the ear surgery appears to be comfortable and in no acute distress. HEENT: Head is atraumatic, normocephalic. Pupils equal, round. Sclerae is anict michelle. Conjunctiva pink. Mucous members of the mouth are moist. Dentition is in poor order. NECK: Supple. No JVD. No lymphadenopathy. No thyromegaly. LUNGS: Clear to auscultation. No wheezes or rhonchi. No intercostal retractions. HEART: Regular rate and rhythm. No murmur. ABDOMEN: Soft. Bowel sounds are present. No masses. No tenderness. EXTREMITIES: No pedal edema. No calf tenderness. Scaly psoriatic lesions noted bilateral lower extremities. Patient has multiplemarks on bilateral forearms with scabbing. On the left proximal forearm and there is a sutured laceration currently with [address] Every other has been removed. There is purulent drainage, surrounding erythema and edema with redness extending to distal forearm. NEUROLOGICAL: Patient is awake, alert and oriented x3. Cranial nerves 2 through 12 are grossly intact. Results CBC & Chem 7: 01/24/19 11:13 01/24/19 11:13 Labs: Abnormal Lab Results - Last 24 Hours (Table) 01/24/19 Range/Units 11:13 Glucose 102 H (74-99) mg/dL Thrombosis Risk Factor Assmnt - DVT/VTE Prophylaxis DVT/VTE Prophylaxis: Pharmacologic Prophylaxis ordered - Choose All That Apply Any of the Below Risk Factors Present?: Yes Each Factor Represents 1 point: Age 41-60 years Other Risk Factors: No Other congenital or acquired thrombophilia - If yes, enter type in comment: No Thrombosis Risk Factor Assessment Total Risk Factor Score: 1 Thrombosis Risk Factor Assessment Level: Low Risk Assessment and Plan Plan: 1. Infected dog bite left forearm failed outpatient treatment with Cipro and clindamycin. Every other suture has been removed. Consult requested with orthopedics for I&D. Dr. Perez is on consult for IV antibiotic management. Patient received clindamycin and Levaquin. Wound culture has been obtained as well as blood culture. 2. Rheumatoid arthritis, not on treatment. Recommend follow-up with supervisor sewing room once infection is cleared. 3. Psoriasis and psoriatic arthritis. Recommend follow-up with supervisor sewing room once infection is cleared. 4. Chronic neck and back pain, stable. Continue [place] 10 one twice daily as needed and MS Contin 30 mg every 12 hours. 5. Tobacco use and dependence. Nicotine patch. Smoking cessation discussed. 6. Recurrent depression. Continue citalopram 40 mg daily. 7. Gastroesophageal reflux disease and GI prophylaxis. Patient is on Protonix. 8. DVT prophylaxis. SCDs and JUNE torres. Patient will be admitted to the hospital for a minimum of 2 night stay. Discharge plan: Return home. Most likely patient will require IV antibiotics. Impression and plan of care have been directed as dictated by the signing physician. Mehnaz Dorado nurse practitioner acting as scribe for signing physician.
--- NOTE | 2019-01-24 14:14 | P.CONS ---
History of Present Illness - Reason for Consult Consult date: 01/24/19 Dog bite Past Medical History Past Medical History: Fibromyalgia, GERD/Reflux, Hearing Disorder / Deafness, Pneumonia, Rheumatoid Arthritis (RA) Additional Past Medical History / Comment(s): Chronic low back and cervical pain , psoriatic arthritis, bronchitis, peptic ulcer, IBS, deaf in L ear and [place] in the right ear. History of Any Multi-Drug Resistant Organisms: None Reported Past Surgical History: Orthopedic Surgery, Tubal Ligation, Uterine Ablation Additional Past Surgical History / Comment(s): 01/21/19 flap laceration repair LFA , anterior cervical decompression/fusion C5-C6 and C6-C7, cervical and low back epidural injections, D&C/hysteroscopy and uterine ablation Past Anesthesia/Blood Transfusion Reactions: No Reported Reaction Additional Past Anesthesia/Blood Transfusion Reaction / Comm: Pt received blood when she was first born. Smoking Status: Current every day smoker - Past Family History Mother Additional Family Medical History / Comment(s): Mother of zay CA. She was a smoker Sister(s) Family Medical History: Cancer Additional Family Medical History / Comment(s): Sister from lung cancer. She was a smoker. Medications and Allergies Home Medications Medication Instructions Recorded Confirmed Type Citalopram Hydrobromide [CeleXA] 40 mg PO DAILY 11/05/16 01/24/19 History HYDROcodone/APAP 10-325MG [Canvas 1 tab PO BID PRN 11/05/16 01/24/19 History 10-325] Morphine Sulfate [Ms Contin] 30 mg PO Q12H 11/05/16 01/24/19 History Dextroamphetamine/Amphetamine 30 mg PO BID 08/16/18 01/24/19 History [Adderall] Ranitidine HCl [Zantac] 150 mg PO BID 08/16/18 01/24/19 History Ciprofloxacin HCl [Cipro] 500 mg PO Q12HR 01/24/19 01/24/19 History Clindamycin HCl 300 mg PO TID 01/24/19 01/24/19 History Pantoprazole Sodium [Protonix] 40 mg PO DAILY 01/24/19 01/24/19 History Allergies Allergy/AdvReac Type Severity Reaction Status Date / Time duloxetine [From Cymbalta] Allergy Rash/Hives Verified 01/24/19 10:34 Penicillins Allergy Rash/Hives Verified 01/24/19 10:34 tramadol [From Ultram] Allergy Rapid Verified 01/24/19 10:34 Heart Rate Physical Exam Vitals: Vital Signs Temp Pulse Resp BP Pulse Ox 01/24/19 14:06 108 H 18 116/69 97 01/24/19 13:13 112 H 18 116/69 98 01/24/19 10:14 98.7 F 110 H 18 135/84 99 Intake and Output 01/23/19 01/24/19 01/24/19 22:59 06:59 14:59 Other: Weight 63.503 kg Results CBC & Chem 7: 01/24/19 11:13 01/24/19 11:13 Labs: Abnormal Lab Results - Last 24 Hours (Table) 01/24/19 Range/Units 11:13 Glucose 102 H (74-99) mg/dL
[2019-01-24] MEDS ORDERED: HYDROcodone/APAP 10-325MG 1 EACH TAB PO PRN (14:27)
--- NOTE | 2019-01-24 14:48 | P.CONS ---
History of Present Illness - Reason for Consult Consult date: 01/24/19 Dog bite - History of Present Illness This is a 43--year-old female with a past medical history of rheumatoid arthritis, psoriatic arthritis, chronic back and neck pain, tobacco use and dependence. Patient gives history that her dog bit her on Tuesday. She states she was leaning on her son's bed to plug in a phone and the dog attacked her biting both arms. She went [facility] and a flap laceration repair was done to the left forearm. Patient was placed on ciprofloxacin and clindamycin which she has been taking. She states she was doing okay on Tuesday and was just sore but then on Tuesday it started oozing. She was seen by her primary care doctor and was sent in to [facility] emergency center for evaluation. Left forearm x-ray showed no acute fracture or dislocation in the left radius or ulna. Left elbow and wrist joints. Normal. Mild to moderate continuous edema along the radial volar aspect proximal forearm without suspicious for radiodense foreign body. Patient has been started on clindamycin IV and Levaquin. She has an ALLERGY to penicillin which is a rash. She has been afebrile, heart rate running in the low 100s. CBC is normal, lactic acid 0.7, albumin 3.7. Patient to be admitted to the [facility] floor. Regarding the dog, it is a pit bull terrier mix and is her own dog. She is planning to have the dog put down. The animals immunizations are one month overdue. Regarding rheumatoid arthritis, patient has not been on any medications for this. She has been referred to a specialist but Dr. Paris but did not follow-up. Regarding the psoriasis and psoriatic arthritis, she has used creams topically but has not been on DMARDs. Tetanus status is up-to-date. There is a consult in place for Dr. Melissa. Review of Systems All systems: negative Constitutional: Denies anorexia, Denies chills, Denies fatigue, Denies fever, Denies poor appetite, Denies weakness, Denies weight loss Eyes: denies blurred vision, denies pain Ears, nose, mouth and throat: Denies dental pain, Denies headache, Denies mouth pain, Denies sore throat, Denies vertigo Cardiovascular: Denies chest pain, Denies dyspnea on exertion, Denies edema, Denies leg edema, Denies lightheadedness, Denies shortness of breath, Denies syncope Respiratory: Denies cough, Denies cough with sputum, Denies dyspnea, Denies excessive sputum, Denies hemoptysis, Denies home oxygen, Denies wheezing Gastrointestinal: Denies abdominal pain, Denies diarrhea, Denies loss of appetite, Denies nausea, Denies vomiting Genitourinary: Denies dysuria, Denies hematuria, Denies urgency, Denies urinary frequency Musculoskeletal: Denies frequent falls, Denies gait dysfunction, Denies myalgias Integumentary: Reports color changes, Reports darkening of skin, Reports lesions, Reports wounds, Denies pruritus, Denies rash Neurological: Denies aphasia, Denies change in mentation, Denies change in speec h, Denies gait dysfunction, Denies numbness, Denies seizures, Denies vertigo, Denies weakness Psychiatric: Denies anxiety, Denies anxiety attacks, Denies depression Endocrine: Denies fatigue, Denies weight change Past Medical History Past Medical History: Fibromyalgia, GERD/Reflux, Hearing Disorder / Deafness, Pneumonia, Rheumatoid Arthritis (RA) Additional Past Medical History / Comment(s): Chronic low back and cervical pain, psoriatic arthritis, bronchitis, peptic ulcer, IBS, deaf in L ear and [place] in the right ear. History of Any Multi-Drug Resistant Organisms: None Reported Past Surgical History: Orthopedic Surgery, Tubal Ligation, Uterine Ablation Additional Past Surgical History / Comment(s): 01/21/19 flap laceration repair LFA, anterior cervical decompression/fusion C5-C6 and C6-C7, cervical and low back epidural injections, D&C/hysteroscopy and uterine ablation Past Anesthesia/Blood Transfusion Reactions: No Reported Reaction Additional Past Anesthesia/Blood Transfusion Reaction / Comm: Pt received blood when she was first born. Smoking Status: Current every day smoker Additional Past Alcohol Use History / Comment(s): Patient is a smoker of half pack per day since she was 13 years of age. She denies any marijuana, street drug or alcohol use. She lives at home with her significant other and children. - Past Family History Mother Additional Family Medical History / Comment(s): Mother at age 67 of lung CA. She was a smoker Sister(s) Family Medical History: Cancer Additional Family Medical History / Comment(s): Sister at age 55 from lung cancer. She was a smoker. Patient has 2 other sisters alive with no major medical problems. Brother(s) Additional Family Medical History / Comment(s): Patient has 1 brother that at age 45 from alcoholic cirrhosis with history of alcohol abuse and drug abuse as well as hepatitis. Father Additional Family Medical History / Comment(s): Patient has no contact with her father. Patient has 5 children with no major medical problems. Medications and Allergies Home Medications Medication Instructions Recorded Confirmed Type Citalopram Hydrobromide [CeleXA] 40 mg PO DAILY 11/05/16 01/24/19 History HYDROcodone/APAP 10-325MG [[place] 1 tab PO BID PRN 11/05/16 01/24/19 History 10-325] Morphine Sulfate [Ms Contin] 30 mg PO Q12H 11/05/16 01/24/19 History Dextroamphetamine/Amphetamine 30 mg PO BID 08/16/18 01/24/19 History [Adderall] Ranitidine HCl [Zantac] 150 mg PO BID 08/16/18 01/24/19 History Ciprofloxacin HCl [Cipro] 500 mg PO Q12HR 01/24/19 01/24/19 History Clindamycin HCl 300 mg PO TID 01/24/19 01/24/19 History Pantoprazole Sodium [Protonix] 40 mg PO DAILY 01/24/19 01/24/19 History Allergies Allergy/AdvReac Type Severity Reaction Status Date / Time duloxetine [From Cymbalta] Allergy Rash/Hives Verified 01/24/19 10:34 Penicillins Allergy Rash/Hives Verified 01/24/19 10:34 tramadol [From Ultram] Allergy Rapid Verified 01/24/19 10:34 Heart Rate Physical Exam Vitals: Vital Signs Temp Pulse Resp BP Pulse Ox 01/24/19 14:06 108 H 18 116/69 97 01/24/19 13:13 112 H 18 116/69 98 01/24/19 10:14 98.7 F 110 H 18 135/84 99 Intake and Output 01/23/19 01/24/19 01/24/19 22:59 06:59 14:59 Other: Weight 63.503 kg Gen: This is a 43-year-old female. She is resting in the ear surgery appears to be comfortable and in no acute distress. HEENT: Head is atraumatic, normocephalic. Pupils equal, round. Sclerae is anicteric. Conjunctiva pink. Mucous members of the mouth are moist. Dentition is in poor order. NECK: Supple. No JVD. No lymphadenopathy. No thyromegaly. LUNGS: Clear to auscultation. No wheezes or rhonchi. No intercostal retractions. HEART: Regular rate and rhythm. No murmur. ABDOMEN: Soft. Bowel sounds are present. No masses. No tenderness. EXTREMITIES: No pedal edema. No calf tenderness. Scaly psoriatic lesions noted bilateral lower extremities. Patient has multiplemarks on bilateral forearms with scabbing. On the left proximal forearm and there is a sutured laceration currently with [address] Every other has been removed. There is purulent drainage, surrounding erythema and edema with redness extending to distal forearm. NEUROLOGICAL: Patient is awake, alert and oriented x3. Cranial nerves 2 through 12 are grossly intact. Results Results: Laboratory Results WBC 8.7 k/uL (3.8-10.6) 01/24/19 11:13 RBC 3.87 m/uL (3.80-5.40) 01/24/19 11:13 Hgb 12.2 gm/dL (11.4-16.0) 01/24/19 11:13 Hct 36.9 % (34.0-46.0) 01/24/19 11:13 MCV 95.3 fL (80.0-100.0) 01/24/19 11:13 MCH 31.5 pg (25.0-35.0) 01/24/19 11:13 MCHC 33.0 g/dL (31.0-37.0) 01/24/19 11:13 RDW 12.7 % (11.5-15.5) 01/24/19 11:13 Plt Count 193 k/uL (150-450) 01/24/19 11:13 Neutrophils % 62 % 01/24/19 11:13 Lymphocytes % 25 % 01/24/19 11:13 Monocytes % 6 % 01/24/19 11:13 Eosinophils % 3 % 01/24/19 11:13 Basophils % 0 % 01/24/19 11:13 Neutrophils # 5.4 k/uL (1.3-7.7) 01/24/19 11:13 Lymphocytes # 2.2 k/uL (1.0-4.8) 01/24/19 11:13 Monocytes # 0.5 k/uL (0-1.0) 01/24/19 11:13 Eosinophils # 0.2 k/uL (0-0.7) 01/24/19 11:13 Basophils # 0.0 k/uL (0-0.2) 01/24/19 11:13 Sodium 139 mmol/L (137-145) 01/24/19 11:13 Potassium 4.9 mmol/L (3.5-5.1) 01/24/19 11:13 Chloride 105 mmol/L (98-107) 01/24/19 11:13 Carbon Dioxide 28 mmol/L (22-30) 01/24/19 11:13 Anion Gap 6 mmol/L 01/24/19 11:13 BUN 7 mg/dL (7-17) 01/24/19 11:13 Creatinine 0.57 mg/dL (0.52-1.04) 01/24/19 11:13 Est GFR (CKD-EPI)AfAm >90 (>60 ml/min/1.73 sqM) 01/24/19 11:13 Est GFR (CKD-EPI)NonAf >90 (>60 ml/min/1.73 sqM) 01/24/19 11:13 Glucose 102 mg/dL (74-99) H 01/24/19 11:13 Plasma Lactic Acid Siddhartha 0.7 mmol/L (0.7-2.0) 01/24/19 12:04 Calcium 9.4 mg/dL (8.4-10.2) 01/24/19 11:13 Total Bilirubin 0.6 mg/dL (0.2-1.3) 01/24/19 11:13 AST 16 U/L (14-36) 01/24/19 11:13 ALT 22 U/L (9-52) 01/24/19 11:13 Alkaline Phosphatase 52 U/L (38-126) 01/24/19 11:13 Total Protein 6.3 g/dL (6.3-8.2) 01/24/19 11:13 Albumin 3.7 g/dL (3.5-5.0) 01/24/19 11:13 CBC & Chem 7: 01/24/19 11:13 01/24/19 11:13 Labs: Abnormal Lab Results - Last 24 Hours (Table) 01/24/19 Range/Units 11:13 Glucose 102 H (74-99) mg/dL Assessment and Plan Plan: This is a 43-year-old female who presents to the hospital with infected dog bite to the left forearm, status post laceration repair done at [facility], failed outpatient treatment with ciprofloxacin and clindamycin. Patient has had every other suture removed. Consult is in place with Dr. Melissa for I&D. Patient has received 1 dose of Levaquin and 1 dose of clindamycin in the emergency center. Invanz will be started. Tetanus status is up-to-date. Wound culture and blood culture are status received. Continue supportive care. Further recommendations as patient progresses. The above dictated assessment and findings were discussed with Dr. Perez. The impression and plan of care have been directed as dictated. Mehnaz Dorado nurse practitioner acting as scribe for Dr. Perez.
[2019-01-24] MEDS: NICOTINE 14MG/24HR PATCH TRANSDERM SCH (14:49)
[2019-01-24] MEDS: ERTAPENEM 1 GM in SODIUM CHLORIDE 0.9% 50 ML IVPB SCH (15:22)
[2019-01-24] MEDS ORDERED: KETOROLAC 30 MG/ML 1 ML VIAL IVP PRN (20:01)
--- NOTE | 2019-01-24 20:01 | P.CON ---
Consult Note - . Consult date: 01/24/19 Assessment/Plan:: This is a 43--year-old female with a past medical history of rheumatoid arthritis, psoriatic arthritis, chronic back and neck pain, tobacco use and dependence. Patient gives history that her dog bit her on Tuesday. She states she was leaning on her son's bed to plug in a phone and the dog attacked her biting both arms. She went [facility] and a flap laceration repair was done to the left forearm. Patient was placed on ciprofloxacin and clindamycin which she has been taking. She states she was doing okay on Tuesday and was just sore but then on Tuesday it started oozing. She was seen by her primary care doctor and was sent in to [facility] emergency center for evaluation. Left forearm x-ray showed no acute fracture or dislocation in the left radius or ulna. Left elbow and wrist joints. Normal. Mild to moderate continuous edema along the radial volar aspect proximal forearm without suspicious for radiodense foreign body. Patient has been started on clindamycin IV and Levaquin. She has an ALLERGY to penicillin which is a rash. She has been afebrile, heart rate running in the low 100s. CBC is normal, lactic acid 0.7, albumin 3.7. Patient to be admitted to the [facility] floor. Regarding the dog, it is a pit bull terrier mix and is her own dog. She is planning to have the dog put down. The animals immunizations are one month overdue. Regarding rheumatoid arthritis, patient has not been on any medications for this. She has been referred to a specialist but Dr. Paris but did not follow-up. Regarding the psoriasis and psoriatic arthritis, she has used creams topically but has not been on DMARDs. Tetanus status is up-to- date. There is a consult in place for Dr. Melissa.Please see the consult note is dictated by nurse practitioner Mrs. Mehnaz Dorado. This 43-year-old woman was noted is a smoker and suffered a dog bite from her family dog.. It does receive yearly vaccines. Given that they're younger children the home and the severity of her illness is likely they will have the animal putdown because of the significant risks. The patient uses [id number] medications for her arthritis. Does not follow with living supervisor regarding her arthritis. She does relate that the most significant wound which is on the left forearm that required surgical repair has suddenly started to swell become erythematous and have drainage and she started to feel poorly. She was started facility. Some sutures are removed to allow drainage. She does have significant antibiotic ALLERGIES and with that the infectious diseases consultation was requested. Antibiotics have been initiated with ertapenem given her history of ALLERGIES and her failure of the oral outpatient antibiotic in the outpatient setting. Surgical consult requested likely need some opening and debridement of the wound on the left forearm. We will then be able to help with wound care and design potentially an outpatient course of intravenous therapy. Pain control be improved with addition of Toradol. Multivitamin with zinc and protein supplements are requested, smoking cessation is being enhance with utilization of the patch. I agree with evaluation, assessment and plan as dictated by nurse practitioner Mrs. Mehnaz Dorado.
[2019-01-24] MEDS: MORPHINE SULFATE ER 30 MG TABLET PO SCH (21:06)
[2019-01-25] MEDS: SODIUM CHLORIDE 0.9% 1,000 ML IV SCH ×3 (00:20→17:09)
[2019-01-25] MEDS ORDERED: HYDROcodone/APAP 5-325MG 1 EACH TAB ONE (03:00)
[2019-01-25] MEDS: CITALOPRAM HYDROBROMIDE 20 MG TAB PO SCH (08:19)
[2019-01-25] MEDS: ERTAPENEM 1 GM in SODIUM CHLORIDE 0.9% 50 ML IVPB SCH (08:19)
[2019-01-25] MEDS: PANTOPRAZOLE 40 MG/10 ML VIAL IV SCH (08:19)
[2019-01-25] MEDS: MORPHINE SULFATE ER 30 MG TABLET PO SCH ×2 (08:19→20:37)
[2019-01-25] MEDS: NICOTINE 14MG/24HR PATCH TRANSDERM SCH (08:19)
--- NOTE | 2019-01-25 08:28 | P.CNOR ---
History of Present Illness - HPI Consult date: 01/25/19 History of present illness: This is a 43-year-old female who was bit by her family dog on 01/21/2019. The dog as a pitterrier mix and his immunizations are up-to-date. She was bit on both forearms with the left forearm being a more severe bite. She was seen at [facility] at the time and the laceration to the volar aspect of the left forearm was closed with sutures. She soon developed redness and swelling to the area. She was admitted by her family physician to [facility] for IV antibiotics. She has been evaluated by Dr. Perez. We are consulted for orthopedic evaluation and possible surgical debridement. Past Medical History Past Medical History: Fibromyalgia, GERD/Reflux, Hearing Disorder / Deafness, Pneumonia, Rheumatoid Arthritis (RA) Additional Past Medical History / Comment(s): Chronic low back and cervical pain, psoriatic arthritis, bronchitis, peptic ulcer, IBS, deaf in L ear and [place] in the right ear. History of Any Multi-Drug Resistant Organisms: None Reported Past Surgical History: Orthopedic Surgery, Tubal Ligation, Uterine Ablation Additional Past Surgical History / Comment(s): 01/21/19 flap laceration repair LFA, anterior cervical decompression/fusion C5-C6 and C6-C7, cervical and low back epidural injections, D&C/hysteroscopy and uterine ablation Past Anesthesia/Blood Transfusion Reactions: No Reported Reaction Additional Past Anesthesia/Blood Transfusion Reaction / Comm: Pt received blood when she was first born. Smoking Status: Current every day smoker Additional Past Alcohol Use History / Comment(s): Patient is a smoker of half pack per day since she was 13 years of age. She denies any marijuana, street drug or alcohol use. She lives at home with her significant other and children. - Past Family History Mother Additional Family Medical History / Comment(s): Mother at age 67 of lung CA. She was a smoker Sister(s) Family Medical History: Cancer Additional Family Medical History / Comment(s): Sister at age 55 from lung cancer. She was a smoker. Patient has 2 other sisters alive with no major medical problems. Brother(s) Additional Family Medical History / Comment(s): Patient has 1 brother that at age 45 from alcoholic cirrhosis with history of alcohol abuse and drug abuse as well as hepatitis. Father Additional Family Medical History / Comment(s): Patient has no contact with her father. Patient has 5 children with no major medical problems. Medications and Allergies Home Medications Medication Instructions Recorded Confirmed Type Citalopram Hydrobromide [CeleXA] 40 mg PO DAILY 11/05/16 01/24/19 History HYDROcodone/APAP 10-325MG [[place] 1 tab PO BID PRN 11/05/16 01/24/19 History 10-325] Morphine Sulfate [Ms Contin] 30 mg PO Q12H 11/05/16 01/24/19 History Dextroamphetamine/Amphetamine 30 mg PO BID 08/16/18 01/24/19 History [Adderall] Ranitidine HCl [Zantac] 150 mg PO BID 08/16/18 01/24/19 History Ciprofloxacin HCl [Cipro] 500 mg PO Q12HR 01/24/19 01/24/19 History Clindamycin HCl 300 mg PO TID 01/24/19 01/24/19 History Pantoprazole Sodium [Protonix] 40 mg PO DAILY 01/24/19 01/24/19 History Allergies Allergy/AdvReac Type Severity Reaction Status Date / Time duloxetine [From Cymbalta] Allergy Rash/Hives Verified 01/24/19 10:34 Penicillins Allergy Rash/Hives Verified 01/24/19 10:34 tramadol [From Ultram] Allergy Rapid Verified 01/24/19 10:34 Heart Rate Physical Examination This is a pleasant 43-year-old female in no acute distress. She is alert and oriented 3. Exam of the upper extremities reveals small punctures to the right dorsal forearm with mild induration in the area. No purulent drainage. Minimal erythema. Exam of the left upper extremity reveals a V-shaped laceration about the volar aspect of the forearm just distal to the antecubital with significant erythema and purulent drainage. Sutures have been removed. There is an area of induration measuring about 5-6 cm about the distal aspect of the laceration. She has fairly good elbow and wrist motion without difficulty or pain. Neurovascular status the upper extremity is intact. The remainder of her musculoskeletal exam is intact. Results X-rays of the left forearm reveal no bony abnormality. No foreign body noted. No fractures identified. - Labs Labs: Abnormal Lab Results - Last 24 Hours (Table) 01/24/19 Range/Units 11:13 Glucose 102 H (74-99) mg/dL Microbiology - Last 24 Hours (Table) 01/24/19 12:04 Gram Stain - Preliminary Arm - Left Wound Culture - Preliminary H & H 01/24/19 Range/Units 11:13 Hgb 12.2 (11.4-16.0) gm/dL Hct 36.9 (34.0-46.0) % Result Diagrams: 01/24/19 11:13 01/24/19 11:13 Assessment and Plan (1) Cellulitis of left forearm Current Visit: Yes Status: Acute Code(s): L03.114 - CELLULITIS OF LEFT UPPER LIMB SNOMED Code(s): 11445400 (2) Dog bite Current Visit: Yes Status: Acute Code(s): W54.0XXA - BITTEN BY DOG, INITIAL ENCOUNTER SNOMED Code(s): 246425708 (3) Failure of outpatient treatment Current Visit: Yes Status: Acute Code(s): Z78.9 - OTHER SPECIFIED HEALTH STATUS SNOMED Code(s): 869929563 (4) Smoker Current Visit: Yes Status: Acute Code(s): F17.200 - NICOTINE DEPENDENCE, UNSPECIFIED, UNCOMPLICATED SNOMED Code(s): 04283672 Plan: The clinical and x-ray findings are discussed with the patient. I have reviewed the case with Dr. Melissa. We will go forward with irrigation and debridement of the wound today. The patient is nothing by mouth at this time. Continue IV antibiotics per infectious disease.
[2019-01-25] MEDS ORDERED: IV FLUID CONTINUATION 1,000 ML IV ONE (10:49)
[2019-01-25] MEDS ORDERED: fentaNYL (PF) 50 MCG/ML 2 ML AMP ONE (11:08)
[2019-01-25] MEDS ORDERED: SUCCINYLCHOLINE CHLORIDE 100 MG/5 ML SYR IV ONE (11:08)
[2019-01-25] MEDS ORDERED: MIDAZOLAM 2 MG/2 ML VIAL ONE (11:08)
[2019-01-25] MEDS ORDERED: LIDOCAINE 1% INJ 10MG/ML (20 ML MDV) ONE (11:08)
[2019-01-25] MEDS ORDERED: PROPOFOL 10 MG/ML 20 ML VIAL IV ONE (11:08)
[2019-01-25] MEDS ORDERED: LACTATED RINGERS 1,000 ML IV ONE (11:48)
[2019-01-25] MEDS ORDERED: SENNOSIDES-DOCUSATE SODIUM 1 EACH TAB PO PRN (11:53)
[2019-01-25] MEDS ORDERED: HYDROcodone/APAP 5-325MG 1 EACH TAB PO PRN (11:53)
[2019-01-25] MEDS ORDERED: diphenhydrAMINE 25 MG CAP PO PRN (11:53)
[2019-01-25] MEDS ORDERED: TEMAZEPAM 15 MG CAP PO PRN (11:53)
[2019-01-25] MEDS ORDERED: MORPHINE SULFATE 4 MG/ML SYRINGE IVP ONE (12:36)
[2019-01-25] MEDS: LACTATED RINGERS 1,000 ML IV SCH ×2 (13:08→23:45)
[2019-01-25] MEDS ORDERED: HYDROcodone/APAP 10-325MG 1 EACH TAB PO PRN (14:05)
--- NOTE | 2019-01-25 14:09 | P.PN ---
Subjective Progress Note Date: 01/25/19 This is a 43--year-old female patient of Dr. Paris with a past medical history of rheumatoid arthritis, psoriatic arthritis, chronic back and neck pain, tobacco use and dependence. Patient gives history that her dog bit her on Tuesday. She states she was leaning on her son's bed to plug in a phone and the dog attacked her biting both arms. She went [facility] and a flap laceration repair was done to the left forearm. Patient was placed on ciprofloxacin and clindamycin which she has been taking. She states she was doing okay on Tuesday and was just sore but then on Tuesday it started oozing. She was seen by her primary care doctor and was sent in to the [facility] emergency center for evaluation. Left forearm x-ray showed no acute fracture or dislocation in the left radius or ulna. Left elbow and wrist joints. Normal. Mild to moderate continuous edema along the radial volar aspect proximal forearm without suspicious for radiodense foreign body. Patient has been started on clindamycin IV and Levaquin. She has an ALLERGY to penicillin which is a rash. She has been afebrile, heart rate running in the low 100s. CBC is normal, lactic acid 0.7, albumin 3.7. Patient to be admitted to the [facility] floor and consult with Dr. Perez has been requested. Regarding the dog, it is a pit bull terrier mix and is her own dog. She is planning to have the dog put down. The animals immunizations are one month overdue. Regarding rheumatoid arthritis, patient has not been on any medications for this. She has been referred to a specialist but Dr. Paris but did not follow-up. Regarding the psoriasis answer reticulocyte arthritis, she has used creams topically but has not ever been on DMARDs. Tetanus status is up-to-date. 01/25: Patient has been seen by Dr. Perez and antibiotics changed to ertapenem. Patient has been seen by orthopedics and underwent I&D today of the left forearm wound. She has been afebrile, blood pressure 108/61, heart rate in the 80s to 100, pulse ox 97% on room air. She is having significant pain to the area. She is currently on Toradol 60 every 6 hours and will be changed to scheduled. Patient's home dose of [place] 10 twice daily will be increased to every 6 hours as needed. Patient have left arm elevated on 2 pillows. Patient is also having pain to the right forearm around specific puncture site with surrounding erythema. Patient has been started on a clear liquid diet and [facility]. Wound culture from yesterday is in process, blood culture is status received. Review of Systems Constitutional: Denies anorexia, Denies chills, Denies fatigue, Denies fever, Denies poor appetite, Denies weakness, Denies weight loss Eyes: denies blurred vision, denies pain Ears, nose, mouth and throat: Denies dental pain, Denies headache, Denies mouth pain, Denies sore throat, Denies vertigo Cardiovascular: Denies chest pain, Denies dyspnea on exertion, Denies edema, Denies leg edema, Denies lightheadedness, Denies shortness of breath, Denies syncope Respiratory: Denies cough, Denies cough with sputum, Denies dyspnea, Denies excessive sputum, Denies hemoptysis, Denies home oxygen, Denies wheezing Gastrointestinal: Denies abdominal pain, Denies diarrhea, Denies loss of appetite, Denies nausea, Denies vomiting Genitourinary: Denies dysuria, Denies hematuria, Denies urgency, Denies urinary frequency Musculoskeletal: Denies frequent falls, Denies gait dysfunction, Denies myalgias Integumentary: Reports color changes, Reports darkening of skin, Reports lesions, Reports wounds, Denies pruritus, Denies rash, reports pain to bilateral arms from wounds Neurological: Denies aphasia, Denies change in mentation, Denies change in speech, Denies gait dysfunction, Denies numbness, Denies seizures, Denies vertigo, Denies weakness Psychiatric: Denies anxiety, Denies anxiety attacks, Denies depression Endocrine: Denies fatigue, Denies weight change Objective - Vital Signs Vital signs: Vital Signs Temp 97.6 F 01/25/19 06:13 Pulse 88 01/25/19 06:13 Resp 16 01/25/19 06:13 BP 114/70 01/25/19 06:13 Pulse Ox 96 01/25/19 06:13 Intake & Output 01/24/19 01/25/19 01/25/19 18:59 06:59 18:59 Weight 63.503 kg Other: Voiding Method Toilet # Voids 1 2 - Exam Gen: This is a 43-year-old female. She is resting in the ear surgery appears to be comfortable and in no acute distress. HEENT: Head is atraumatic, normocephalic. Pupils equal, round. Sclerae is anicteric. Conjunctiva pink. Mucous members of the mouth are moist. Dentition is in poor order. NECK: Supple. No JVD. No lymphadenopathy. No thyromegaly. LUNGS: Clear to auscultation. No wheezes or rhonchi. No intercostal retractions. HEART: Regular rate and rhythm. No murmur. ABDOMEN: Soft. Bowel sounds are present. No masses. No tenderness. EXTREMITIES: No pedal edema. No calf tenderness. Scaly psoriatic lesions noted bilateral lower extremities. Patient has multiplemarks on right forearm with scabbing. Puncture wound to the right forearm have some surrounding erythema. Left forearm has large dressing in place. Patient has full range of motion to the fingers and wrist, capillary refill immediate. NEUROLOGICAL: Patient is awake, alert and oriented x3. Cranial nerves 2 through 12 are grossly intact. - Labs CBC & Chem 7: 01/26/19 06:40 01/24/19 11:13 Labs: Abnormal Lab Results - Last 24 Hours (Table) 01/24/19 Range/Units 11:13 Glucose 102 H (74-99) mg/dL Microbiology - Last 24 Hours (Table) 01/24/19 12:04 Gram Stain - Preliminary Arm - Left Wound Culture - Preliminary Assessment and Plan Plan: 1. Infected dog bite left forearm failed outpatient treatment with Cipro and clindamycin. Every other suture has been removed. Consult requested with orthopedics s/p I&D. Dr. Perez is on consult for IV antibiotic management. Antibiotics transitioned to Invanz. Wound culture has been obtained as well as blood culture. 2. Rheumatoid arthritis, not on treatment. Recommend follow-up with [facility] once infection is cleared. 3. Psoriasis and psoriatic arthritis. Recommend follow-up with forest ranger once infection is cleared. 4. Chronic neck and back pain, stable. Continue Lyons 10 one twice daily as needed and MS Contin 30 mg every 12 hours. 5. Tobacco use and dependence. Nicotine patch. Smoking cessation discussed. 6. Recurrent depression. Continue citalopram 40 mg daily. 7. Gastroesophageal reflux disease and GI prophylaxis. Patient is on Protonix. 8. DVT prophylaxis. SCDs and JUNE torres. Discharge plan: Return home. Most likely patient will require IV antibiotics. Impression and plan of care have been directed as dictated by the signing physician. Mehnaz Dorado nurse practitioner acting as scribe for signing physician.
[2019-01-25] MEDS: KETOROLAC 30 MG/ML 1 ML VIAL IVP SCH ×2 (17:08→23:50)
--- NOTE | 2019-01-25 18:40 | P.PN ---
Subjective Progress Note Date: 01/25/19 This is a 43--year-old female with a past medical history of rheumatoid arthritis, psoriatic arthritis, chronic back and neck pain, tobacco use and dependence. Patient gives history that her dog bit her on Tuesday. She states she was leaning on her son's bed to plug in a phone and the dog attacked her biting both arms. She went [facility] and a flap laceration repair was done to the left forearm. Patient was placed on ciprofloxacin and clindamycin which she has been taking. She states she was doing okay on Tuesday and was just sore but then on Tuesday it started oozing. She was seen by her primary care doctor and was sent in to [facility] emergency [address] for evaluation. Left forearm x-ray showed no acute fracture or dislocation in the left radius or ulna. Left elbow and wrist joints. Normal. Mild to moderate continuous edema along the radial volar aspect proximal forearm without suspicious for radiodense foreign body. Patient has been started on clindamycin IV and Levaquin. She has an ALLERGY to penicillin which is a rash. She has been afebrile, heart rate running in the low 100s. CBC is normal, lactic acid 0.7, albumin 3.7. Patient to be admitted to the [facility] floor. Regarding the dog, it is a pit bull terrier mix and is her own dog. She is planning to have the dog put down. The animals immunizations are one month overdue. Regarding rheumatoid arthritis, patient has not been on any medications for this. She has been referred to a specialist but Dr. Paris but did not follow-up. Regarding the psoriasis and psoriatic arthritis, she has used creams topically but has not been on DMARDs. Tetanus status is up-to-date. There is a consult in place for Dr. Melissa. 01/25/2019 patient has been seen by orthopedics and is taken to the OR and the left arm site was opened and a pocket of purulence was found, and partly closed and packed with iodofor guaze. Objective - Vital Signs Vital signs: Vital Signs Temp 97.5 F L 01/25/19 13:15 Pulse 92 01/25/19 14:26 Resp 16 01/25/19 13:15 BP 106/62 01/25/19 14:26 Pulse Ox 96 01/25/19 14:26 Intake & Output 01/24/19 01/25/19 01/25/19 18:59 06:59 18:59 Intake Total 400 Output Total 3 Balance 397 Weight 63.503 kg Intake: IV 400 Output: Estimated Blood Loss 3 Other: Voiding Method Toilet # Voids 1 2 2 - Exam Gen: This is a 43-year-old female. She is resting in the ear surgery appears to be comfortable and in no acute distress. HEENT: Head is atraumatic, normocephalic. Pupils equal, round. Sclerae is anicteric. Conjunctiva pink. Mucous members of the mouth are moist. Dentition is in poor order. NECK: Supple. No JVD. No lymphadenopathy. No thyromegaly. LUNGS: Clear to auscultation. No wheezes or rhonchi. No intercostal retractions. HEART: Regular rate and rhythm. No murmur. ABDOMEN: Soft. Bowel sounds are present. No masses. No tenderness. EXTREMITIES: No pedal edema. No calf tenderness. Scaly psoriatic lesions noted bilateral lower extremities. Patient has multiplemarks on bilateral forearms with scabbing. On the left proximal forearm is now dressed after surgery. NEUROLOGICAL: Patient is post op - Labs CBC & Chem 7: 01/24/19 11:13 01/24/19 11:13 Labs: Microbiology - Last 24 Hours (Table) 01/24/19 12:04 Blood Culture - Preliminary Blood No Growth after 24 hours 01/24/19 12:04 Gram Stain - Preliminary Arm - Left Wound Culture - Preliminary Laboratory Results WBC 8.7 k/uL (3.8-10.6) 01/24/19 11:13 RBC 3.87 m/uL (3.80-5.40) 01/24/19 11:13 Hgb 12.2 gm/dL (11.4-16.0) 01/24/19 11:13 Hct 36.9 % (34.0-46.0) 01/24/19 11:13 MCV 95.3 fL (80.0-100.0) 01/24/19 11:13 MCH 31.5 pg (25.0-35.0) 01/24/19 11:13 MCHC 33.0 g/dL (31.0-37.0) 01/24/19 11:13 RDW 12.7 % (11.5-15.5) 01/24/19 11:13 Plt Count 193 k/uL (150-450) 01/24/19 11:13 Neutrophils % 62 % 01/24/19 11:13 Lymphocytes % 25 % 01/24/19 11:13 Monocytes % 6 % 01/24/19 11:13 Eosinophils % 3 % 01/24/19 11:13 Basophils % 0 % 01/24/19 11:13 Neutrophils # 5.4 k/uL (1.3-7.7) 01/24/19 11:13 Lymphocytes # 2.2 k/uL (1.0-4.8) 01/24/19 11:13 Monocytes # 0.5 k/uL (0-1.0) 01/24/19 11:13 Eosinophils # 0.2 k/uL (0-0.7) 01/24/19 11:13 Basophils # 0.0 k/uL (0-0.2) 01/24/19 11:13 Sodium 139 mmol/L (137-145) 01/24/19 11:13 Potassium 4.9 mmol/L (3.5-5.1) 01/24/19 11:13 Chloride 105 mmol/L (98-107) 01/24/19 11:13 Carbon Dioxide 28 mmol/L (22-30) 01/24/19 11:13 Anion Gap 6 mmol/L 01/24/19 11:13 BUN 7 mg/dL (7-17) 01/24/19 11:13 Creatinine 0.57 mg/dL (0.52-1.04) 01/24/19 11:13 Est GFR (CKD-EPI)AfAm >90 (>60 ml/min/1.73 sqM) 01/24/19 11:13 Est GFR (CKD-EPI)NonAf >90 (>60 ml/min/1.73 sqM) 01/24/19 11:13 Glucose 102 mg/dL (74-99) H 01/24/19 11:13 Plasma Lactic Acid Siddhartha 0.7 mmol/L (0.7-2.0) 01/24/19 12:04 Calcium 9.4 mg/dL (8.4-10.2) 01/24/19 11:13 Total Bilirubin 0.6 mg/dL (0.2-1.3) 01/24/19 11:13 AST 16 U/L (14-36) 01/24/19 11:13 ALT 22 U/L (9-52) 01/24/19 11:13 Alkaline Phosphatase 52 U/L (38-126) 01/24/19 11:13 Total Protein 6.3 g/dL (6.3-8.2) 01/24/19 11:13 Albumin 3.7 g/dL (3.5-5.0) 01/24/19 11:13 Urine HCG, Qual Not Detected (Not Detectd) 01/25/19 10:00 Microbiology 01/24/19 12:04 Blood Blood Culture - Preliminary No Growth after 24 hours 01/24/19 12:04 Arm - Left Gram Stain - Preliminary 01/24/19 12:04 Arm - Left Wound Culture - Preliminary Assessment and Plan (1) Cellulitis of left forearm Narrative/Plan: This 43-year-old woman was noted is a smoker and suffered a dog bite from her family dog.. It does receive yearly vaccines. Given that they're younger children the home and the severity of her illness is likely they will have the animal putdown because of the significant risks. The patient uses [id number] medications for her arthritis. Does not follow with communications controller regarding her arthritis. She does relate that the most significant wound which is on the left forearm that required surgical repair has suddenly started to swell become erythematous and have drainage and she started to feel poorly. She was started facility. Some sutures are removed to allow drainage. She does have significant antibiotic ALLERGIES and with that the infectious diseases consultation was requested. Antibiotics have been initiated with ertapenem given her history of ALLERGIES and her failure of the oral outpatient antibiotic in the outpatient setting. Surgical consult requested likely need some opening and debridement of the wound on the left forearm. We will then be able to help with wound care and design potentially an outpatient course of intravenous therapy. Pain control be improved with addition of Toradol. Multivitamin with zinc and protein supplements are requested, smoking cessation is being enhance with utilization of the patch. 01/25/2019 has had surgical debridement today and site is packed will assist in post operative dressings and outpatient follow up. Await cultures to determine the course of antibiotics at discharge. Current Visit: Yes Status: Acute Code(s): L03.114 - CELLULITIS OF LEFT UPPER LIMB SNOMED Code(s): 24380027 (2) Dog bite Current Visit: Yes Status: Acute Code(s): W54.0XXA - BITTEN BY DOG, INITIAL ENCOUNTER SNOMED Code(s): 943399434 (3) Failure of outpatient treatment Current Visit: Yes Status: Acute Code(s): Z78.9 - OTHER SPECIFIED HEALTH STATUS SNOMED Code(s): 644347467 (4) Smoker Current Visit: Yes Status: Acute Code(s): F17.200 - NICOTINE DEPENDENCE, UNSPECIFIED, UNCOMPLICATED SNOMED Code(s): 59902586
[2019-01-26] MEDS: KETOROLAC 30 MG/ML 1 ML VIAL IVP SCH ×2 (05:19→12:11)
[2019-01-26] MEDS: SODIUM CHLORIDE 0.9% 1,000 ML IV SCH ×2 (05:20→12:12)
[2019-01-26 07:29] LABS: Basophils % (A) 1 %; Eosinophils # (A) 0.2 k/uL (0-0.7); Eosinophils % (A) 4 %; HCT 35.3 % (34.0-46.0); HGB 11.4 gm/dL (11.4-16.0); Lymphocytes # (A) 1.4 k/uL (1.0-4.8); Lymphocytes % (A) 34 %; MCH 31.8 pg (25.0-35.0); MCHC 32.4 g/dL (31.0-37.0); MCV 97.9 fL (80.0-100.0); Mean Platelet Volume 7.1; Monocytes # (A) 0.2 k/uL (0-1.0); Monocytes % (A) 6 %; Neutrophils # (A) 2.2 k/uL (1.3-7.7); Neutrophils % (A) 53 %; Platelet Count 189 k/uL (150-450); RDW 12.9 % (11.5-15.5); WBC 4.1 k/uL (3.8-10.6)
[2019-01-26 08:04] VITALS: BP 124/79; PULSE 93; RESP 15; TEMP 98.8
[2019-01-26] MEDS: LACTATED RINGERS 1,000 ML IV SCH (08:08)
[2019-01-26] MEDS: MORPHINE SULFATE ER 30 MG TABLET PO SCH (08:16)
[2019-01-26] MEDS: NICOTINE 14MG/24HR PATCH TRANSDERM SCH (08:16)
[2019-01-26] MEDS: CITALOPRAM HYDROBROMIDE 20 MG TAB PO SCH (08:17)
[2019-01-26] MEDS: PANTOPRAZOLE 40 MG/10 ML VIAL IV SCH (08:17)
--- NOTE | 2019-01-26 08:54 | P.PN ---
Subjective Progress Note Date: 01/26/19 Principal diagnosis: Infection left arm. Status post dog bite left arm. This is a 43-year-old female who is status post irrigation and debridement of a wound to her left forearm from a dog bite. She has no new complaints or concerns today. Vital signs are stable. Objective - Vital Signs Vital signs: Vital Signs Temp 98.8 F 01/26/19 06:58 Pulse 93 01/26/19 06:58 Resp 15 01/26/19 06:58 BP 124/79 01/26/19 06:58 Pulse Ox 92 L 01/26/19 06:58 Intake & Output 01/25/19 01/26/19 01/26/19 18:59 06:59 18:59 Intake Total 400 1000 Output Total 3 Balance 397 1000 Intake: IV 400 Intake, IV Titration 1000 Amount Sodium Chloride 0.9% 1, 1000 000 ml @ 100 mls/hr IV . Q10H SARY Rx#:[id number] Output: Estimated Blood Loss 3 Other: # Voids 2 - Exam This is a pleasant 43-year-old female in no acute distress. She is alert and oriented 3. Exam of the left upper extremity reveals that packing is in place. Packing is removed. Wound edges appear fairly healthy. There is no active drainage from the wound at this time. She has full elbow, wrist and finger motion. Neurovascular status to the upper extremity is intact. - Labs CBC & Chem 7: 01/26/19 06:40 01/24/19 11:13 Labs: Abnormal Lab Results - Last 24 Hours (Table) 01/26/19 Range/Units 06:40 RBC 3.60 L (3.80-5.40) m/uL Microbiology - Last 24 Hours (Table) 01/24/19 12:04 Blood Culture - Preliminary Blood No Growth after 24 hours 01/24/19 12:04 Gram Stain - Preliminary Arm - Left Wound Culture - Preliminary Assessment and Plan (1) Cellulitis of left forearm Current Visit: Yes Status: Acute Code(s): L03.114 - CELLULITIS OF LEFT UPPER LIMB SNOMED Code(s): 12525067 (2) Dog bite Current Visit: Yes Status: Acute Code(s): W54.0XXA - BITTEN BY DOG, INITIAL ENCOUNTER SNOMED Code(s): 550808449 (3) Failure of outpatient treatment Current Visit: Yes Status: Acute Code(s): Z78.9 - OTHER SPECIFIED HEALTH STATUS SNOMED Code(s): 301163172 (4) Smoker Current Visit: Yes Status: Acute Code(s): F17.200 - NICOTINE DEPENDENCE, UNSPECIFIED, UNCOMPLICATED SNOMED Code(s): 57302521 Plan: The clinical findings are discussed with the patient. Wound packing and dressing has been changed today. Continue daily packing and dressing changes per nursing. Patient may perform daily dressing changes on her own once she is discharged. She may be discharged from an orthopedic standpoint. Antibiotics per Dr. Perez.
[2019-01-26] MEDS: ERTAPENEM 1 GM in SODIUM CHLORIDE 0.9% 50 ML IVPB SCH (09:34)
--- NOTE | 2019-01-26 13:32 | P.DS ---
Providers Date of admission: 01/24/19 12:44 Expected date of discharge: 01/26/19 Attending physician: Crow Guillermo Consults: 01/24/19 12:45 Consult Physician Stat Consulting Provider: Crow Perez Consult Reason/Comments: Dog bite cellulitis, Failure outpatient Do you want consulting provider notified?: Yes 01/24/19 13:55 Consult Physician Routine Consulting Provider: Js Melissa Consult Reason/Comments: dog bite Do you want consulting provider notified?: Yes Primary care physician: Tha Paris [facility] Course: This is a 43--year-old female patient of Dr. Paris with a past medical history of rheumatoid arthritis, psoriatic arthritis, chronic back and neck pain, tobacco use and dependence. Patient gives history that her dog bit her on Tuesday. She states she was leaning on her son's bed to plug in a phone and the dog attacked her biting both arms. She went [facility] and a flap laceration repair was done to the left forearm. Patient was placed on ciprofloxacin and clindamycin which she has been taking. She states she was doing okay on Tuesday and was just sore but then on Tuesday it started oozing. She was seen by her primary care doctor and was sent in to the [facility] emergency center for evaluation. Left forearm x-ray showed no acute fracture or dislocation in the left radius or ulna. Left elbow and wrist joints. Normal. Mild to moderate continuous edema along the radial volar aspect proximal forearm without suspicious for radiodense foreign body. Patient has been started on clindamycin IV and Levaquin. She has an ALLERGY to penicillin which is a rash. She has been afebrile, heart rate running in the low 100s. CBC is normal, lactic acid 0.7, albumin 3.7. Patient to be admitted to the [facility] floor and consult with Dr. Perez has been requested. Regarding the dog, it is a pit bull terrier mix and is her own dog. She is planning to have the dog put down. The animals immunizations are one month overdue. Regarding rheumatoid arthritis, patient has not been on any medications for this. She has been referred to a specialist but Dr. Paris but did not follow-up. Regarding the psoriasis answer reticulocyte arthritis, she has used creams topically but has not ever been on DMARDs. Tetanus status is up-to-date. 01/25: Patient has been seen by Dr. Perez and antibiotics changed to ertapenem. Patient has been seen by orthopedics and underwent I&D today of the left forearm wound. She has been afebrile, blood pressure 108/61, heart rate in the 80s to 100, pulse ox 97% on room air. She is having significant pain to the area. She is currently on Toradol 60 every 6 hours and will be changed to scheduled. Patient's home dose of [place] 10 twice daily will be increased to every 6 hours as needed. Patient have left arm elevated on 2 pillows. Patient is also having pain to the right forearm around specific puncture site with surrounding erythema. Patient has been started on a clear liquid diet and advance to regular. Wound culture from yesterday is in process, blood culture is status received. 01/26: Patient has been afebrile, heart rate in the 80s and 90s, blood pressure 124/79, pulse ox 92% on room air. White count is 4.1, hemoglobin 11.4, platelet count 189. The patient has been cleared by orthopedics for discharge. Packing is iodoform in the left forearm wound. Wound culture showing Streptococcus species. Dr. Perez has provided prescription for clindamycin for 10 day course.. Patient will be discharged home today in stable condition. Discharge diagnoses: 1. Infected dog bite left forearm failed outpatient treatment with Cipro and clindamycin status post I&D with Dr. Melissa. 2. Rheumatoid arthritis, not on treatment. 3. Psoriasis and psoriatic arthritis. Recommend follow-up with [facility] process [facility] head once infection is cleared. 4. Chronic neck and back pain, stable. 5. Tobacco use and dependence. 6. Recurrent depression. 7. Gastroesophageal reflux disease Discharge plan: Return home. Most likely patient will require IV antibiotics. Impression and plan of care have been directed as dictated by the signing physician. Mehnaz Dorado nurse practitioner acting as scribe for signing physician. Patient Condition at Discharge: Good Plan - Discharge Summary Discharge Rx Participant: No New Discharge Prescriptions: New Clindamycin [Cleocin] 300 mg PO Q6H #40 capsule Nicotine 14Mg/24Hr Patch [Habitrol] 1 patch TRANSDERM DAILY #30 patch Continue Morphine Sulfate [Ms Contin] 30 mg PO Q12H HYDROcodone/APAP 10-325MG [[place] 10-325] 1 tab PO BID PRN PRN Reason: Pain Citalopram Hydrobromide [CeleXA] 40 mg PO DAILY Dextroamphetamine/Amphetamine [Adderall] 30 mg PO BID Ranitidine HCl [Zantac] 150 mg PO BID Pantoprazole Sodium [Protonix] 40 mg PO DAILY Discontinued Clindamycin HCl 300 mg PO TID Ciprofloxacin HCl [Cipro] 500 mg PO Q12HR Discharge Medication List Citalopram Hydrobromide [CeleXA] 40 mg PO DAILY 11/05/16 [History] HYDROcodone/APAP 10-325MG [[place] 10-325] 1 tab PO BID PRN 11/05/16 [History] Morphine Sulfate [Ms Contin] 30 mg PO Q12H 11/05/16 [History] Dextroamphetamine/Amphetamine [Adderall] 30 mg PO BID 08/16/18 [History] Ranitidine HCl [Zantac] 150 mg PO BID 08/16/18 [History] Pantoprazole Sodium [Protonix] 40 mg PO DAILY 01/24/19 [History] Clindamycin [Cleocin] 300 mg PO Q6H #40 capsule 01/26/19 [Rx] Nicotine 14Mg/24Hr Patch [Habitrol] 1 patch TRANSDERM DAILY #30 patch 01/26/19 [Rx] Follow up Appointment(s)/Referral(s): [facility], [NON-STAFF] - Tha Paris DO [Primary Care Provider] - 1 Week Js Melissa MD [STAFF PHYSICIAN] - 01/30/19 2:00 pm Crow Perez MD [STAFF PHYSICIAN] - 1 Week (at wound center please) Activity/Diet/Wound Care/Special Instructions: Patient has a close follow-up with primary care provider. Continue Daily dressing changes and packing with 1/2" Iodiform gauze. Antibiotics per ID. Discharge Disposition: HOME WITH HOME HEALTH SERVICES
--- NOTE | 2019-01-26 22:02 | P.PN ---
Subjective Progress Note Date: 01/26/19 This is a 43--year-old female with a past medical history of rheumatoid arthritis, psoriatic arthritis, chronic back and neck pain, tobacco use and dependence. Patient gives history that her dog bit her on Tuesday. She states she was leaning on her son's bed to plug in a phone and the dog attacked her biting both arms. She went [facility] and a flap laceration repair was done to the left forearm. Patient was placed on ciprofloxacin and clindamycin which she has been taking. She states she was doing okay on Tuesday and was just sore but then on Tuesday it started oozing. She was seen by her primary care doctor and was sent in to [facility] emergency [address] for evaluation. Left forearm x-ray showed no acute fracture or dislocation in the left radius or ulna. Left elbow and wrist joints. Normal. Mild to moderate continuous edema along the radial volar aspect proximal forearm without suspicious for radiodense foreign body. Patient has been started on clindamycin IV and Levaquin. She has an ALLERGY to penicillin which is a rash. She has been afebrile, heart rate running in the low 100s. CBC is normal, lactic acid 0.7, albumin 3.7. Patient to be admitted to the [facility] floor. Regarding the dog, it is a pit bull terrier mix and is her own dog. She is planning to have the dog put down. The animals immunizations are one month overdue. Regarding rheumatoid arthritis, patient has not been on any medications for this. She has been referred to a specialist but Dr. Paris but did not follow-up. Regarding the psoriasis and psoriatic arthritis, she has used creams topically but has not been on DMARDs. Tetanus status is up-to-date. There is a consult in place for Dr. Melissa. 01/25/2019 patient has been seen by orthopedics and is taken to the OR and the left arm site was opened and a pocket of purulence was found, and partly closed and packed with iodofor guaze. 01/26/2019 improved with the I&D and ready for discharge. Objective - Vital Signs Vital signs: Vital Signs Temp 98.8 F 01/26/19 06:58 Pulse 93 01/26/19 06:58 Resp 15 01/26/19 06:58 BP 124/79 01/26/19 06:58 Pulse Ox 92 L 01/26/19 06:58 Intake & Output 01/26/19 01/26/19 01/27/19 06:59 18:59 06:59 Intake Total 1000 Balance 1000 Intake: Intake, IV Titration 1000 Amount Sodium Chloride 0.9% 1, 1000 000 ml @ 100 mls/hr IV . Q10H SARY Rx#:[id number] Other: # Voids 2 - Exam Gen: This is a 43-year-old female. She is resting in the ear surgery appears to be comfortable and in no acute distress. HEENT: Head is atraumatic, normocephalic. Pupils equal, round. Sclerae is anicteric. Conjunctiva pink. Mucous members of the mouth are moist. Dentition is in poor order. NECK: Supple. No JVD. No lymphadenopathy. No thyromegaly. LUNGS: Clear to auscultation. No wheezes or rhonchi. No intercostal retractions. HEART: Regular rate and rhythm. No murmur. ABDOMEN: Soft. Bowel sounds are present. No masses. No tenderness. EXTREMITIES: No pedal edema. No calf tenderness. Scaly psoriatic lesions noted bilateral lower extremities. Patient has multiplemarks on bilateral forearms with scabbing. On the left proximal forearm is improved less drainage and pain. NEUROLOGICAL: Patient is AAOX3 - Labs CBC & Chem 7: 01/26/19 06:40 01/24/19 11:13 Labs: Abnormal Lab Results - Last 24 Hours (Table) 01/26/19 Range/Units 06:40 RBC 3.60 L (3.80-5.40) m/uL Microbiology - Last 24 Hours (Table) 01/24/19 12:04 Blood Culture - Preliminary Blood No Growth after 48 hours 01/24/19 12:04 Gram Stain - Preliminary Arm - Left Wound Culture - Preliminary Streptococcus species Laboratory Results WBC 4.1 k/uL (3.8-10.6) 01/26/19 06:40 RBC 3.60 m/uL (3.80-5.40) L 01/26/19 06:40 Hgb 11.4 gm/dL (11.4-16.0) 01/26/19 06:40 Hct 35.3 % (34.0-46.0) 01/26/19 06:40 MCV 97.9 fL (80.0-100.0) 01/26/19 06:40 MCH 31.8 pg (25.0-35.0) 01/26/19 06:40 MCHC 32.4 g/dL (31.0-37.0) 01/26/19 06:40 RDW 12.9 % (11.5-15.5) 01/26/19 06:40 Plt Count 189 k/uL (150-450) 01/26/19 06:40 Neutrophils % 53 % 01/26/19 06:40 Lymphocytes % 34 % 01/26/19 06:40 Monocytes % 6 % 01/26/19 06:40 Eosinophils % 4 % 01/26/19 06:40 Basophils % 1 % 01/26/19 06:40 Neutrophils # 2.2 k/uL (1.3-7.7) 01/26/19 06:40 Lymphocytes # 1.4 k/uL (1.0-4.8) 01/26/19 06:40 Monocytes # 0.2 k/uL (0-1.0) 01/26/19 06:40 Eosinophils # 0.2 k/uL (0-0.7) 01/26/19 06:40 Basophils # 0.0 k/uL (0-0.2) 01/26/19 06:40 Sodium 139 mmol/L (137-145) 01/24/19 11:13 Potassium 4.9 mmol/L (3.5-5.1) 01/24/19 11:13 Chloride 105 mmol/L (98-107) 01/24/19 11:13 Carbon Dioxide 28 mmol/L (22-30) 01/24/19 11:13 Anion Gap 6 mmol/L 01/24/19 11:13 BUN 7 mg/dL (7-17) 01/24/19 11:13 Creatinine 0.57 mg/dL (0.52-1.04) 01/24/19 11:13 Est GFR (CKD-EPI)AfAm >90 (>60 ml/min/1.73 sqM) 01/24/19 11:13 Est GFR (CKD-EPI)NonAf >90 (>60 ml/min/1.73 sqM) 01/24/19 11:13 Glucose 102 mg/dL (74-99) H 01/24/19 11:13 Plasma Lactic Acid Siddhartha 0.7 mmol/L (0.7-2.0) 01/24/19 12:04 Calcium 9.4 mg/dL (8.4-10.2) 01/24/19 11:13 Total Bilirubin 0.6 mg/dL (0.2-1.3) 01/24/19 11:13 AST 16 U/L (14-36) 01/24/19 11:13 ALT 22 U/L (9-52) 01/24/19 11:13 Alkaline Phosphatase 52 U/L (38-126) 01/24/19 11:13 Total Protein 6.3 g/dL (6.3-8.2) 01/24/19 11:13 Albumin 3.7 g/dL (3.5-5.0) 01/24/19 11:13 Urine HCG, Qual Not Detected (Not Detectd) 01/25/19 10:00 Microbiology 01/24/19 12:04 Blood Blood Culture - Preliminary No Growth after 48 hours 01/24/19 12:04 Arm - Left Gram Stain - Preliminary 01/24/19 12:04 Arm - Left Wound Culture - Preliminary Streptococcus species Assessment and Plan (1) Cellulitis of left forearm Narrative/Plan: This 43-year-old woman was noted is a smoker and suffered a dog bite from her family dog.. It does receive yearly vaccines. Given that they're younger children the home and the severity of her illness is likely they will have the animal putdown because of the significant risks. The patient uses [id number] medications for her arthritis. 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 She does relate that the most significant wound which is on the left forearm that required surgical repair has suddenly started to swell become erythematous and have drainage and she started to feel poorly. She was started facility. Some sutures are removed to allow drainage. She does have significant antibiotic ALLERGIES and with that the infectious diseases consultation was requested. Antibiotics have been initiated with ertapenem given her history of ALLERGIES and her failure of the oral outpatient antibiotic in the outpatient setting. Surgical consult requested likely need some opening and debridement of the wound on the left forearm. We will then be able to help with wound care and design potentially an outpatient course of intravenous therapy. Pain control be improved with addition of Toradol. Multivitamin with zinc and protein supplements are requested, smoking cessation is being enhance with utilization of the patch. 01/25/2019 has had surgical debridement today and site is packed will assist in post operative dressings and outpatient follow up. Await cultures to determine the course of antibiotics at discharge. 01/26/2019 patient is now improved and ready for discharge to home. As noted she failed outpatient antibiotic therapy with Cipro and Flagyl. With isolation of what appears to be a streptococcal pathogen, and with her ALLERGIES will utilize oral clindamycin for her at discharge. We'll like her to follow-up with the wound healing Center for further evaluation. Discharge today. Status: Acute Code(s): L03.114 - CELLULITIS OF LEFT UPPER LIMB SNOMED Code(s): 29609457 (2) Dog bite Status: Acute Code(s): W54.0XXA - BITTEN BY DOG, INITIAL ENCOUNTER SNOMED Code(s): 959286758 (3) Failure of outpatient treatment Status: Acute Code(s): Z78.9 - OTHER SPECIFIED HEALTH STATUS SNOMED Code(s): 850991596 (4) Smoker Status: Acute Code(s): F17.200 - NICOTINE DEPENDENCE, UNSPECIFIED, UNCOMPLICATED SNOMED Code(s): 68610416
[2019-01-27] MEDS ORDERED: PANTOPRAZOLE 40 MG TABLET PO SCH (07:30)
--- NOTE | 2019-02-07 09:37 | P.OP ---
Date of Procedure: 01/25/19 Procedure(s) Performed: PREOPERATIVE DIAGNOSES: 1. Left forearm dog bite wound POSTOPERATIVE DIAGNOSES: 1. Left forearm dog bite wound PROCEDURES PERFORMED: 1. Left forearm dog bite wound Irrigation and debridement and packing of open wound (sharp debridement using knife of skin, subcutaneous tissue, fascia) ANESTHESIA: Spinal MANAGER CREATIVE: None COMPLICATIONS: None ESTIMATED BLOOD LOSS: Less than 10 mL. DISPOSITION: To post-anesthesia care unit INDICATIONS: Dacia is a 41-year-old female who sustained an injury to the left forearm from a dog bite. The dog bite wound was initially closed in the emergency room and has gone on to create an abscess. The injury consists of a V-shaped laceration over the volar aspect of the forearm without evidence of muscular or tendon injury. I recommended exploration and debridement of the open wound and possible closure over drain versus packing. I have discussed the steps of the operation as well as potential risks and complications as being inclusive of, but not limited to: Bleeding, infection, scarring, discomfort, blood vessel and/or nerve damage, tendon injury, wound complications possibly requiring skin graft or flap, reflex sympathetic dystrophy, persistent pain, diminished function, anesthesia risks, , and other risks. The patient wishes to proceed with surgery and has signed a consent form. PROCEDURE: After appropriate consent was obtained, the patient was taken to the operating room placed in the supine position. Anesthesia was initiated, and after confirmation of adequate anesthesia, the patient was carefully positioned. Care was taken to make sure that all pressure points were adequately padded. Prepping and draping were completed in the usual aseptic fashion using Hibiclens prep. Timeout was called, confirming patient identity, side, procedure, and administration of antibiotics. The wound was explored first. The wound measured approximately 4 cm in size on one side, the other side being 4 cm also. Previous sutures were attached were still intact were removed . The wound was opened using a hemostat and a mild amount of pus was seen in the subcutaneous tissues. The wound cavity was initially irrigated with approximately 100 mL of fluid and then exploration of the wound was performed digitally . The abscess cavity extended somewhat medially in the subcu tissues for a distance of approximately 5 cm. This area was manually opened using finger dissection and then pulse lavage using approximately 3 L of saline. Sharp debridement was performed with a knife of the devitalized portions of the skin, subcutaneous tissue and a small amount of muscular fascia. There is no deep penetration into the muscular body. The wound was then partially closed on one side with interrupted 4-0 nylon sutures. The other side was kept open and packed with iodoform gauze into the 5 cm subcutaneous extension of the abscess. Sterile dressing was then applied consisting of AVD pads and sterile web roll, followed by Kerlix and Rogerio wrap. Patient tolerated the procedure well and there were no complications and minimal blood loss..
== END 2019-01-26 14:55 | disposition home health service (06) | DRG 571 ==
LOC: EC 10:12 → 4MS4W 12:44 → 4SSUR 01-25 17:16
PROVIDERS: ADMIT Internal Medicine Geriatric Medicine; ATTEND Internal Medicine Geriatric Medicine
PROC: 0JBH0ZZ Excision of Left Lower Arm Subcutaneous Tissue and Fascia, Open Approach (ICD-10-PCS; principal; 2019-01-25 16:30)
DX: L03.114 Cellulitis of left upper limb (principal); F33.9 Major depressive disorder, recurrent, unspecified; L40.50 Arthropathic psoriasis, unspecified; M06.9 Rheumatoid arthritis, unspecified; G89.29 Other chronic pain; M54.2 Cervicalgia; M54.9 Dorsalgia, unspecified; F17.200 Nicotine dependence, unspecified, uncomplicated; M79.7 Fibromyalgia; S51.851A Open bite of right forearm, initial encounter; K21.9 Gastro-esophageal reflux disease without esophagitis; H91.92 Unspecified hearing loss, left ear; K58.9 Irritable bowel syndrome, unspecified; B95.5 Unspecified streptococcus as the cause of diseases classified elsewhere; W54.0XXA Bitten by dog, initial encounter; Z71.6 Tobacco abuse counseling; Z79.899 Other long term (current) drug therapy; Z87.01 Personal history of pneumonia (recurrent); Z98.51 Tubal ligation status; Z87.11 Personal history of peptic ulcer disease; Z88.0 Allergy status to penicillin; Z88.8 Allergy status to other drugs, medicaments and biological substances; Z80.1 Family history of malignant neoplasm of trachea, bronchus and lung
CPT/HCPCS: 36415; 80053; 81025; 83605; 85025; 87040; 87070; 87077; 87186; 87205; 96365; 96367; 99285

== ENCOUNTER → 2019-09-25 | Outpatient (CLI) | payer OTHER ==
--- NOTE | 2019-09-26 14:20 | MM ---
Reason for exam: screening (asymptomatic). Last mammogram was performed 2 years and 1 month ago. Physical Findings: A clinical breast exam by your physician is recommended on an annual basis and results should be correlated with mammographic findings. MG Screening Mammo w CAD Bilateral CC and MLO view(s) were taken. Prior study comparison: September 06, 2017, right breast MG work up mamm w CAD RT. August 26, 2017, bilateral MG screening mammo w CAD. The breast tissue is heterogeneously dense. This may lower the sensitivity of mammography. No suspicious abnormality. No significant changes when compared with prior studies. ASSESSMENT: Negative, BI-RAD 1 RECOMMENDATION: Routine screening mammogram of both breasts in 1 year.
== END | disposition home or self-care (01) ==
LOC: RADMAMWWP 14:25
PROVIDERS: ATTEND Obstetrics & Gynecology
DX: Z12.31 Encounter for screening mammogram for malignant neoplasm of breast (principal)
CPT/HCPCS: 77067

== ENCOUNTER → 2020-11-26 | Outpatient (CLI) | payer OTHER ==
--- NOTE | 2020-11-28 14:00 | MM ---
Reason for exam: screening (asymptomatic). Last mammogram was performed 1 year and 2 months ago. History: Patient is postmenopausal. Physical Findings: A clinical breast exam by your physician is recommended on an annual basis and results should be correlated with mammographic findings. MG Screening Mammo w CAD Bilateral CC and MLO view(s) were taken. XCCL view(s) were taken of the left breast. Prior study comparison: September 25, 2019, bilateral MG screening mammo w CAD. August 26, 2017, bilateral MG screening mammo w CAD. The breast tissue is heterogeneously dense. This may lower the sensitivity of mammography. No significant changes when compared with prior studies. ASSESSMENT: Negative, BI-RAD 1 RECOMMENDATION: Routine screening mammogram of both breasts in 1 year. Patient should continue monthly self breast exams. A negative report should not preclude additional follow up of suspicious palpable abnormalities.
== END | disposition home or self-care (01) ==
LOC: RADMAMWWP 16:04
PROVIDERS: ATTEND Family Medicine
DX: Z12.31 Encounter for screening mammogram for malignant neoplasm of breast (principal)
CPT/HCPCS: 77067

== ENCOUNTER → 2022-03-08 | Outpatient (CLI) | payer OTHER ==
--- NOTE | 2022-03-09 14:50 | MM ---
Reason for exam: screening (asymptomatic). Last mammogram was performed 1 year and 3 months ago. History: Patient is postmenopausal. Physical Findings: A clinical breast exam by your physician is recommended on an annual basis and results should be correlated with mammographic findings. MG 3D Screening Mammo W/Cad Bilateral CC and MLO view(s) were taken. Prior study comparison: November 26, 2020, bilateral MG screening mammo w CAD. September 25, 2019, bilateral MG screening mammo w CAD. August 26, 2017, bilateral MG screening mammo w CAD. The breast tissue is heterogeneously dense. This may lower the sensitivity of mammography. No significant changes when compared with prior studies. ASSESSMENT: Benign, BI-RAD 2 RECOMMENDATION: Routine screening mammogram of both breasts in 1 year.
== END | disposition home or self-care (01) ==
LOC: RADMAMWWP 13:10
PROVIDERS: ATTEND Family Medicine
DX: Z12.31 Encounter for screening mammogram for malignant neoplasm of breast (principal)
CPT/HCPCS: 77063; 77067

== ENCOUNTER → 2022-11-24 | Outpatient (CLI) | payer OTHER ==
--- NOTE | 2022-11-24 16:53 | BD ---
EXAMINATION TYPE: Axial Bone Density DATE OF EXAM: 11/24/2022 COMPARISON: FIRST DEXA AT [facility] CLINICAL HISTORY: 47 years year old Female. ICD-10 CODE: Z78.0 ASYMPTOMATIC MENOPAUSAL STATE Height: 63.5IN Weight: 119LB FRAX RISK QUESTIONS: Secondary Osteoporosis: 3. Menopause before 45: YES Rheumatoid Arthritis: YES Current Tobacco Use: YES RISK FACTORS HISTORY OF: Surgery to Spine: YES CERVICAL SURGERY When: 2019 Active: YES Postmenopausal woman: YES AT 33 Lost more than 2 inches in height since high school: YES MEDICATIONS: Additional Medications: DEPRESSION MED, PSORASIS MED, REFLUX, CALCIUM WITH VITAMIN D Additional History: EXAM MEASUREMENTS: Bone mineral densitometry was performed using the [employer] System. Bone mineral density as measured about the Lumbar spine is: ----- L1-L4(G/cm2): 1.337 T Score Values are as follows: ----- L1: 0.6 ----- L2: 2.6 ----- L3: 1.9 ----- L4: 0.0 ----- L1-L4: 1.3 FIRST DEXA AT [facility] Bone mineral density about the R hip (g/cm2): 0.765 Bone mineral density about the L hip (g/cm2): 0.776 T Score values are as follows: -----R Neck: -1.7 -----L Neck: -1.9 -----R Total: -1.9 -----L Total: -1.8 FRAX%s: The graph provided illustrates a 5.2% chance for a major osteoporotic fx and a 1.3% chance fo r the hips probability for fx in 10 years time. IMPRESSION: Osteopenia (T Score between -2.5 and -1). There is slightly increased risk of fracture and the patient may be considered for treatment. Re-Screen 2-5 years. NOTE: T-SCORE=SD OF THE YOUNG ADULT MEAN.
--- NOTE | 2022-11-24 21:00 | XR ---
EXAMINATION TYPE: XR chest 2V DATE OF EXAM: 11/24/2022 COMPARISON: 08/16/2018 HISTORY: 47-year-old female F1 7.210, nicotine dependence, 30 years of smoking. TECHNIQUE: Frontal and lateral views FINDINGS: Heart normal size. Aorta and pulmonary vasculature within normal limits. Mild interstitial prominence . Hyperinflation. ACF hardware. No consolidation or pleural effusion. IMPRESSION: Hyperinflation suggesting underlying emphysema. No acute process seen.
== END | disposition home or self-care (01) ==
LOC: RADBDWWP 14:58
PROVIDERS: ATTEND Family Medicine
DX: M85.89 Other specified disorders of bone density and structure, multiple sites (principal); J98.4 Other disorders of lung; F17.210 Nicotine dependence, cigarettes, uncomplicated; Z78.0 Asymptomatic menopausal state
CPT/HCPCS: 71046; 77080

== ENCOUNTER 2022-12-14 09:10 | Day surgery (SDC) | payer OTHER ==
[2022-12-10 10:05] VITALS: BMI 20.7
[2022-12-14] MEDS ORDERED: LACTATED RINGERS 1,000 ML IV SCH (09:26)
[2022-12-14 09:34] VITALS: TEMP 98.3
[2022-12-14] MEDS ORDERED: PROPOFOL 10 MG/ML 20 ML VIAL IV ONE (10:15)
--- NOTE | 2022-12-14 10:31 | P.PCN ---
Date of Procedure: 12/14/22 Procedure(s) Performed: BRIEF HISTORY: Patient is a 47-year-old pleasant white female scheduled for an elective colonoscopy as a part of screening for colon cancer and strong family history of colon cancer. Her mother was diagnosed with colon cancer at age 65 and her sister at age 54. PROCEDURE PERFORMED: Colonoscopy. PREOPERATIVE DIAGNOSIS: Screening for colon cancer/family history of colon cancer. IV sedation per Anesthesia. PROCEDURE: After informed consent was obtained, the patient, was brought into the endoscopy unit. IV sedation was administered by Anesthesia under continuous monitoring. Digital rectal examination was normal. Initially the Olympus CF-160 flexible video colonoscope was then inserted in the rectum, gradually advanced into the cecum without any difficulty. Careful examination was performed as the scope was gradually being withdrawn. Ileocecal valve and the appendiceal orifice were visualized and appeared normal. Prep was excellent. Mucosa of the cecum, had a 1 cm nonbleeding arteriovenous malformation. In the distal ascending colon there was another 1 cm arteriovenous malformation identified. Rest of the mucosa ascending colon, transverse colon, descending colon, sigmoid colon, and rectum appeared normal. Retroflexion was performed in the rectum and no lesions were seen. The patient tolerated the procedure well. IMPRESSION: Normal-appearing colon from rectum to cecum with no evidence of colorectal neoplasia . 1 cm and 1.5 cm nonbleeding arterial venous malformation in the cecum and in the ascending colon RECOMMENDATIONS: Findings of this examination were discussed with the patient as well as a family. She was advised to have a repeat screening colonoscopy every 5 years because of the strong family history of colon cancer..
[2022-12-14 10:36] VITALS: RESP 16
[2022-12-14 11:00] VITALS: BP 101/67; PULSE 71
== END 2022-12-14 11:16 | disposition home or self-care (01) ==
LOC: ORWHC2ENDO 09:10
PROVIDERS: ATTEND Internal Medicine Gastroenterology
DX: Z12.11 Encounter for screening for malignant neoplasm of colon (principal); Q27.30 Arteriovenous malformation, site unspecified; Z80.0 Family history of malignant neoplasm of digestive organs; Z88.0 Allergy status to penicillin; Z87.891 Personal history of nicotine dependence; Z79.899 Other long term (current) drug therapy
CPT/HCPCS: 45378; 81025; J2704

== ENCOUNTER → 2023-03-09 | Outpatient (CLI) | payer OTHER ==
--- NOTE | 2023-03-09 11:41 | MM ---
Reason for Exam: Screening (asymptomatic). Last screening mammogram was performed 12 month(s) ago. Patient History: Menarche at age 13. First Full-Term at age 23. Postmenopausal. Risk Values: Oly 5 year model risk: 0.8%. NCI Lifetime model risk: 8.4%. Prior Study Comparison: 09/25/2019 Bilateral Screening Mammogram, [facility]. 11/26/2020 Bilateral Screening Mammogram, [facility]. 03/08/2022 Bilateral Screening Mammogram, [facility]. Tissue Density: The breast tissue is heterogeneously dense. This may lower the sensitivity of mammography. Findings: Analyzed By CAD. There is no suspicious group of microcalcifications or new suspicious mass in either breast. Overall Assessment: Negative, BI-RAD 1 Management: Screening Mammogram of both breasts in 1 year. A clinical breast exam by your physician is recommended on an annual basis and results should be correlated with mammographic findings. Electronically signed and approved by: Jose Walton D.O.
== END | disposition home or self-care (01) ==
LOC: RADMAMWWP 10:34
PROVIDERS: ATTEND Family Medicine
DX: Z12.31 Encounter for screening mammogram for malignant neoplasm of breast (principal); Z78.0 Asymptomatic menopausal state
CPT/HCPCS: 77063; 77067

== ENCOUNTER → 2023-05-31 | Outpatient (CLI) | payer OTHER ==
--- NOTE | 2023-05-31 19:12 | XR ---
EXAMINATION TYPE: XR lumbosacral spine 5 views, XR knee complete 3 views bilateral DATE OF EXAM: 05/31/2023 Comparison: None Clinical History: 48-year-old female M25.561 M54.50 Findings: Lumbar spine: 5 lumbar type vertebral bodies. Moderate degenerative disc disease L2-L3 with disc space narrowing, e ndplate sclerosis, and some vacuum phenomenon. Mild degenerative disc disease elsewhere especially lo wer lumbar spine. There is facet arthropathy throughout with degenerative grade 1 retrolisthesis at L 3-L4. Vertebral body heights are preserved. No pars interarticularis defect. Some straightening of th e normal lumbar lordosis. Knees: Extensor mechanisms are intact. No knee joint effusions. No acute fracture, subluxation, dislocation seen. Impression: Lumbar spine: 1. Facet arthropathy with degenerative grade 1 retrolisthesis L3-L4. 2. Moderate degenerative disc disease at L3-L4 and mild within the lower lumbar spine. 3. No vertebral compression collapse. Knees: 4. No acute osseous abnormality on either side.
== END | disposition home or self-care (01) ==
LOC: RADXRMAIN 14:25
PROVIDERS: ATTEND Family Medicine
DX: M43.16 Spondylolisthesis, lumbar region (principal); M51.36 Other intervertebral disc degeneration, lumbar region; M25.561 Pain in right knee
CPT/HCPCS: 72110

== ENCOUNTER → 2024-03-28 | Outpatient (CLI) | payer OTHER ==
--- NOTE | 2024-03-30 10:32 | MM ---
Reason for Exam: Screening (asymptomatic). Last mammogram was performed 1 year(s) and 1 month(s) ago. Patient History: Menarche at age 13. First Full-Term at age 23. Postmenopausal. Risk Values: Oly 5 year model risk: 0.8%. NCI Lifetime model risk: 8.3%. Prior Study Comparison: 11/26/2020 Bilateral Screening Mammogram, [facility]. 03/08/2022 Bilateral Screening Mammogram, [facility]. 03/09/2023 Bilateral MG 3D screening mammo w/cad, [facility]. Tissue Density: The breasts are heterogeneously dense, which may obscure small masses. Findings: Analyzed By CAD. There is no suspicious group of microcalcifications or new suspicious mass in either breast. Overall Assessment: Benign, BI-RAD 2 Management: Screening Mammogram of both breasts in 1 year. . Patient should continue monthly self-breast exams. A clinical breast exam by your physician is recommended on an annual basis. This exam should not preclude additional follow-up of suspicious palpable abnormalities. Note on Oly scores and lifetime risk: 1. A Oly score greater than 3% is considered moderate risk. If this is the case, consider specialist referral to assess eligibility for a risk reducing agent. 2. If overall lifetime risk for the development of breast cancer is 20% or higher, the patient may qualify for future screening with alternating mammogram and breast MRI. Electronically signed and approved by: Crow Tolentino M.D. Radiologis
== END | disposition home or self-care (01) ==
LOC: RADMAMWWP 12:58
PROVIDERS: ATTEND Family Medicine
DX: Z12.31 Encounter for screening mammogram for malignant neoplasm of breast (principal); Z78.0 Asymptomatic menopausal state
CPT/HCPCS: 77067

== ENCOUNTER → 2025-05-13 | Outpatient (CLI) | payer OTHER ==
--- NOTE | 2025-05-13 13:26 | MM ---
Reason for Exam: Screening (asymptomatic). Last mammogram was performed 1 year(s) and 1 month(s) ago. Patient History: Menarche at age 13. First Full-Term at age 23. Postmenopausal. Risk Values: Oly 5 year model risk: 0.8%. NCI Lifetime model risk: 8.2%. Prior Study Comparison: 03/08/2022 Bilateral Screening Mammogram, [facility]. 03/09/2023 Bilateral MG 3D screening mammo w/cad, [facility]. 03/28/2024 Bilateral MG screening mammo w CAD, [facility]. Tissue Density: The breasts are heterogeneously dense, which may obscure small masses. Findings: Analyzed By CAD. Right breast: There is no suspicious group of microcalcifications or new suspicious mass. Left breast: There is no suspicious group of microcalcifications or new suspicious mass. Overall Assessment: Negative, BI-RAD 1 Management: Screening Mammogram of both breasts in [address] [facility] will attempt to contact patient to return for supplemental views and ultrasound if indicated. Patient should continue monthly self-breast exams. A clinical breast exam by your physician is recommended on an annual basis. This exam should not preclude additional follow-up of suspicious palpable abnormalities. Note on Oly scores and lifetime risk: 1. A Oly score greater than 3% is considered moderate risk. If this is the case, consider specialist referral to assess eligibility for a risk reducing agent. 2. If overall lifetime risk for the development of breast cancer is 20% or higher, the patient may qualify for future screening with alternating mammogram and breast MRI. [facility], , 05/13/2025 1:23 PM. Electronically signed and approved by: Dimitri Bynum DO
== END | disposition home or self-care (01) ==
LOC: RADMAMWWP 11:43
PROVIDERS: ATTEND Family Medicine
DX: Z12.31 Encounter for screening mammogram for malignant neoplasm of breast (principal); R92.333 Mammographic heterogeneous density, bilateral breasts; Z78.0 Asymptomatic menopausal state
CPT/HCPCS: 77067